=== PATIENT | female | born 1940 | race Caucasian/White ===

== ENCOUNTER 2018-04-02 06:29 | Emergency (ER) | payer OTHER, MEDICARE ==
[2018-04-02] MEDS ORDERED: HYDROCODONE/APAP 5/325 MG TAB ONE (07:37)
--- NOTE | 2018-04-02 09:14 | RAD REPORT ---
EXAM DESCRIPTION: RAD - Chest Single View - 04/02/2018 7:25 am CLINICAL HISTORY: Fall, right-sided chest and rib pain COMPARISON: August 2016 TECHNIQUE: AP portable chest image was obtained 0712 hours . FINDINGS: Scattered fibrotic change present. Low lung volumes accentuate the mild fibrosis. No pulmo nary contusion or focal lung parenchymal process. Heart and vasculature are normal. No measurable ple ural effusion and no pneumothorax. No gross bone abnormality seen. Rib detail is better evaluated on directed imaging. No acute aortic findings suspected. IMPRESSION: Fibrotic pattern to the lungs mild in degree. No pulmonary contusion or pneumothorax. No gross bone abnormality seen. Dedicated rib films may allow better assessment.
--- NOTE | 2018-04-02 09:17 | RAD REPORT ---
EXAM DESCRIPTION: Ribs Right - 04/02/2018 7:25 am CLINICAL HISTORY: Fall, right-sided rib pain COMPARISON: Chest films same date FINDINGS: No displaced rib fractures are present. Patient has nondisplaced fractures of the posterol ateral right seventh-ninth ribs. No pathologic bone process. No aggressive rib lesion. No underlying pneumothorax, effusion, infiltrate or pulmonary contusion. IMPRESSION: Posterolateral nondisplaced right 7-9th rib fractures.
--- NOTE | 2018-04-02 09:37 | EDPHYS ---
Physician Documentation [facility] Name: Carrie Avery Age: 78 yrs Sex: Female : 1940 Arrival Date: 04/02/2018 Time: 06:32 Bed 7 Private MD: Jorge Tracy R ED Physician Francisco Luz HPI: 04/02 06:45 This 78 yrs old Female presents to ER via Wheelchair with complaints of Right pm1 RIB INJURY. 06:45 3 days ago, patient tripped while she was in the garage and landed on her right side pm1 with right elbow tucked against her body. Patient presenting to the ER with pain to right lateral ribs. No headache, head injury, neck pain or LOC. No shortness of breath, cough or fever. . The patient has not experienced similar symptoms in the past. The patient has not recently seen a physician. Historical: - Allergies: 06:43 Sulfa (Sulfonamide Antibiotics); ed1 - Home Meds: 06:43 Unable to obtain [Active]; ed1 - PMHx: 06:43 Unable to obtain; ed1 - PSHx: 06:43 Unable to obtain; ed1 - Immunization history:: Adult Immunizations unknown. - Social history:: Smoking status: Patient/guardian denies using tobacco. - Ebola Screening: : Patient negative for fever greater than or equal to 101.5 degrees Fahrenheit, and additional compatible Ebola Virus Disease symptoms Patient denies exposure to infectious person Patient denies travel to an Ebola-affected area in the 21 days before illness onset No symptoms or risks identified at this time. ROS: 07:00 Constitutional: Negative for fever, chills, and weight loss, Eyes: Negative for injury, pm1 pain, redness, and discharge, ENT: Negative for injury, pain, and discharge, Neck: Negative for injury, pain, and swelling, Cardiovascular: Negative for chest pain, palpitations, and edema, Respiratory: Negative for shortness of breath, cough, wheezing, and pleuritic chest pain, Abdomen/GI: Negative for abdominal pain, nausea, vomiting, diarrhea, and constipation, Back: Negative for injury and pain, : Negative for injury, bleeding, discharge, and swelling, MS/Extremity: Negative for injury and deformity, Skin: Negative for injury, rash, and discoloration, Neuro: Negative for headache, weakness, numbness, tingling, and seizure. Exam: 07:00 Constitutional: This is a well developed, well nourished patient who is awake, alert, pm1 and in no acute distress. Head/Face: Normocephalic, atraumatic. Eyes: Pupils equal round and reactive to light, extra-ocular motions intact. Lids and lashes normal. Conjunctiva and sclera are non-icteric and not injected. Cornea within normal limits. Periorbital areas with no swelling, redness, or edema. ENT: Nares patent. No nasal discharge, no septal abnormalities noted. Tympanic membranes are normal and external auditory canals are clear. Oropharynx with no redness, swelling, or masses, exudates, or evidence of obstruction, uvula midline. Mucous membranes moist. Neck: Trachea midline, no thyromegaly or masses palpated, and no cervical lymphadenopathy. Supple, full range of motion without nuchal rigidity, or vertebral point tenderness. No Meningismus. 07:00 Cardiovascular: Regular rate and rhythm with a normal S1 and S2. No gallops, murmurs, or rubs. Normal PMI, no JVD. No pulse deficits. Respiratory: Lungs have equal breath sounds bilaterally, clear to auscultation and percussion. No rales, rhonchi or wheezes noted. No increased work of breathing, no retractions or nasal flaring. Abdomen/GI: Soft, non-tender, with normal bowel sounds. No distension or tympany. No guarding or rebound. No evidence of tenderness throughout. Back: No spinal tenderness. No costovertebral tenderness. Full range of motion. Skin: Warm, dry with normal turgor. Normal color with no rashes, no lesions, and no evidence of cellulitis. MS/ Extremity: Pulses equal, no cyanosis. Neurovascular intact. Full, normal range of motion. 07:00 Chest/axilla: Inspection: normal, Palpation: tenderness, of the focal area to right lateral anterior chest, that totally reproduces the patient's complaints. 07:00 Neuro: Orientation: is normal, Motor: is normal, moves all fours. Vital Signs: 06:43 BP 146 / 71; Pulse 81; Resp 18; Temp 97.9(O); Pulse Ox 98% on R/A; Pain 6/10; ed1 07:49 BP 150 / 80; Pulse 82; Resp 18; Pulse Ox 99% ; sv 08:21 BP 124 / 75; Pulse 82; Resp 18; Pulse Ox 98% ; sv MDM: 06:38 Patient medically screened. pm1 07:42 Data reviewed: vital signs. Data interpreted: Pulse oximetry: on room air is 98 %. pm1 Interpretation: normal. 09:36 Counseling: I had a detailed discussion with the patient and/or guardian regarding: the pm1 historical points, exam findings, and any diagnostic results supporting the discharge/admit diagnosis, radiology results, the need for outpatient follow up, to return to the emergency department if symptoms worsen or persist or if there are any questions or concerns that arise at home. 04/02 06:44 Order name: Chest Single View XRAY; Complete Time: 09:17 pm1 04/02 06:44 Order name: Ribs Right XRAY; Complete Time: 09:17 pm1 04/02 09:36 Order name: Misc. Order: Incentive spirometer; Complete Time: 09:52 pm1 Administered Medications: 07:32 Drug: [place] 5 mg-325 mg 1 tabs Route: PO; sg 08:30 Follow up: Response: No adverse reaction; Pain is decreased sv Disposition: 04/02/18 09:37 Discharged to Home. Impression: Multiple fractures of ribs, right side. - Condition is Stable. - Discharge Instructions: Rib Fracture, Incentive Spirometer. - Prescriptions for Tylenol- Codeine #3 300-30 mg Oral Tablet - take 2 tablets by ORAL route every 6 hours As needed; 20 tablet. - Medication Reconciliation Form, Thank You Letter, Antibiotic Education, Prescription Opioid Use form. - Follow up: Emergency Department; When: As needed; Reason: Worsening of condition. Follow up: Private Physician; When: 2 - 3 days; Reason: Recheck today's complaints, Continuance of care, Re-evaluation by your physician. - Problem is new. - Symptoms have improved. Signatures: Dispatcher [employer] Dominique Valverde RN HALIE Allen Grimes RN RN Arelis Guillory RN RN ed1 Chase Torrez NP MEDICAL PLANNER pm1 Corrections: (The following items were deleted from the chart) 09:54 09:37 04/02/2018 09:37 Discharged to Home. Impression: Multiple fractures of ribs, sv right side. Condition is Stable. Forms are Medication Reconciliation Form, Thank You Letter, Antibiotic Education, Prescription Opioid Use. Follow up: Emergency Department; When: As needed; Reason: Worsening of condition. Follow up: Private Physician; When: 2 - 3 days; Reason: Recheck today's complaints, Continuance of care, Re-evaluation by your physician. Problem is new. Symptoms have improved. pm1
--- NOTE | 2018-04-02 09:37 | ER ---
Nurse's Notes [facility] Name: Carrie Avery Age: 78 yrs Sex: Female : 1940 Arrival Date: 04/02/2018 Time: 06:32 Bed 7 Private MD: Jorge Tracy R Diagnosis: Multiple fractures of ribs, right side Presentation: 04/02 06:41 Presenting complaint: Patient states: I fell in the garage on and now the ed1 right side of my ribs hurt. Transition of care: patient was not received from another setting of care. Onset of symptoms was March 30, 2018. Risk Assessment: Do you want to hurt yourself or someone else? Patient reports no desire to harm self or others. Initial Sepsis Screen: Does the patient meet any 2 criteria? No. Patient's initial sepsis screen is negative. Does the patient have a suspected source of infection? No. Patient's initial sepsis screen is negative. Care prior to arrival: None. 06:41 Method Of Arrival: Wheelchair ed1 06:41 Acuity: MIMI 3 ed1 Triage Assessment: 06:43 General: Appears uncomfortable, Behavior is calm, cooperative. Pain: Complains of pain ed1 in right elbow Pain currently is 8 out of 10 on a pain scale. Quality of pain is described as sharp, Pain began 2-3 days ago. Is continuous. EENT: No signs and/or symptoms were reported regarding the EENT system. Neuro: Level of Consciousness is awake, alert, obeys commands, Oriented to person, place, time, situation. Cardiovascular: Denies chest pain, Heart tones S1 S2 present. Respiratory: Airway is patent Respiratory effort is even, unlabored, Respiratory pattern is regular, symmetrical, Breath sounds are clear bilaterally. GI: No signs and/or symptoms were reported involving the gastrointestinal system. : No signs and/or symptoms were reported regarding the genitourinary system. Derm: Skin is intact, Skin is pink, warm \T\ dry. Musculoskeletal: Circulation, motion, and sensation intact. Capillary refill < 3 seconds, in bilateral fingers. Range of motion: intact in all extremities, Reports pain in right elbow. Historical: - Allergies: 06:43 Sulfa (Sulfonamide Antibiotics); ed1 - Home Meds: 06:43 Unable to obtain [Active]; ed1 - PMHx: 06:43 Unable to obtain; ed1 - PSHx: 06:43 Unable to obtain; ed1 - Immunization history:: Adult Immunizations unknown. - Social history:: Smoking status: Patient/guardian denies using tobacco. - Ebola Screening: : Patient negative for fever greater than or equal to 101.5 degrees Fahrenheit, and additional compatible Ebola Virus Disease symptoms Patient denies exposure to infectious person Patient denies travel to an Ebola-affected area in the 21 days before illness onset No symptoms or risks identified at this time. Screenin:47 Abuse screen: Denies threats or abuse. Denies injuries from another. Nutritional ed1 screening: No deficits noted. Tuberculosis screening: No symptoms or risk factors identified. Fall Risk Fall in past 12 months (25 points). Secondary diagnosis (15 points) impaired mobility, No IV (0 pts). Ambulatory Aid- None/Bed Rest/Nurse Assist (0 pts). Gait- Normal/Bed Rest/Wheelchair (0 pts) Mental Status- Oriented to own ability (0 pts). Total Diaz Fall Scale indicates Low Risk Score (25-44 pts). Fall prevention measures have been instituted. Side Rails Up X 2 Frequent Obs/Assesments occuring Family Present and informed to notify staff if they need to leave bedside As available Patient and Family Educated on Fall Prevention Program and strategies. Assessment: 06:47 General: See triage assessment. ed1 07:07 Reassessment: Patient appears in no apparent distress at this time. pt requesting pain sg medication prior to transport to [facility]. 07:30 Reassessment: Patient appears in no apparent distress at this time. Patient and/or sg family updated on plan of care and expected duration. Pain level reassessed. Patient is alert, oriented x 3, equal unlabored respirations, skin warm/dry/pink. pt complaining of pain in the right ribs at this time, pt medicated as ordered awaiting radiology results at this time. 08:30 Reassessment: Patient appears in no apparent distress at this time. Patient and/or sv family updated on plan of care and expected duration. Pain level reassessed. Patient is alert, oriented x 3, equal unlabored respirations, skin warm/dry/pink. Patient states symptoms have improved. 09:54 Reassessment: Patient appears in no apparent distress at this time. Patient and/or sv family updated on plan of care and expected duration. Pain level reassessed. Patient is alert, oriented x 3, equal unlabored respirations, skin warm/dry/pink. Patient states symptoms have improved. Vital Signs: 06:43 BP 146 / 71; Pulse 81; Resp 18; Temp 97.9(O); Pulse Ox 98% on R/A; Pain 6/10; ed1 07:49 BP 150 / 80; Pulse 82; Resp 18; Pulse Ox 99% ; sv 08:21 BP 124 / 75; Pulse 82; Resp 18; Pulse Ox 98% ; sv ED Course: 06:32 Patient arrived in ED. es 06:32 Jorge Tracy MD is Private Physician. es 06:34 [facility] pm1 06:34 Francisco Luz MD is Attending Physician. pm1 06:42 Triage completed. ed1 06:43 Arm band placed on. ed1 06:47 Patient has correct armband on for positive identification. Placed in gown. Bed in low ed1 position. Call light in reach. Side rails up X 1. Adult w/ patient. 07:19 Chest Single View XRAY In Process Unspecified. EDMS 07:19 Ribs Right XRAY In Process Unspecified. EDMS 07:31 Allen Grimes, RN is Primary Nurse. sg 09:45 Incentive spirometer education provided by an Emergency Department nursing staff member.sv 09:53 No provider procedures requiring assistance completed. Patient did not have IV access sv during this emergency room visit. Administered Medications: 07:32 Drug: [place] 5 mg-325 mg 1 tabs Route: PO; sg 08:30 Follow up: Response: No adverse reaction; Pain is decreased sv Outcome: 09:37 Discharge ordered by MD. pm1 09:53 Discharged to home via wheelchair, with family. sv 09:53 Condition: stable 09:53 Discharge instructions given to patient, family, Instructed on discharge instructions, follow up and referral plans. no drinking with medication, no driving heavy equipment, medication usage, IS education Demonstrated understanding of instructions, follow-up care, medications, IS education Prescriptions given X 1. 09:54 Patient left the ED. sv Signatures: Dispatcher [employer] Dominique Valverde RN RN sv Gay, Steven, RN RN sg Salyer, Edna es Riggs, Erika, RN RN ed1 Chase Torrez, SALESPERSON FLYING SQUAD SALESPERSON FLYING SQUAD pm1
== END 2018-04-02 09:54 | disposition home or self-care (01) ==
LOC: ER 06:29
DX: S22.41XA Multiple fractures of ribs, right side, initial encounter for closed fracture (principal); W01.0XXA Fall on same level from slipping, tripping and stumbling without subsequent striking against object, initial encounter; Y92.008 Other place in unspecified non-institutional (private) residence as the place of occurrence of the external cause
CPT/HCPCS: 71045; 99283

== ENCOUNTER 2018-10-07 14:50 | Emergency (ER) | payer OTHER, MEDICARE ==
--- NOTE | 2018-10-07 16:40 | RAD REPORT ---
EXAM DESCRIPTION: CT - Thorax Wo Con CLINICAL HISTORY: Chest pain mid back and left rib pain since fall 3 days ago COMPARISON: Ribs Right dated 04/02/2018; Chest Single View dated 04/02/2018 FINDINGS: The lungs are clear. No pleural thickening or pleural effusion. No pneumothorax. No axillary, mediastinal or hilar adenopathy. Mild superior compression deformity is seen affecting T6 vertebral body with slight thickening of the paraspinal tissues. This likely represents a mild acute osteoporotic compression fracture. No additi onal fracture is seen. The visualized/included ribs are intact. No gross upper abdominal finding. All CT scans are performed using dose optimization technique as appropriate and may include automated exposure control or mA/KV adjustment according to patient size. IMPRESSION: Mild acute central compression fracture affecting T6 suspected with about 10-15% loss of vertebral body height.
[2018-10-07] MEDS ORDERED: IBUPROFEN 400 MG TAB ONE (17:06)
[2018-10-07] MEDS ORDERED: ACETAMINOPHEN 500 MG TAB ONE (17:06)
--- NOTE | 2018-10-07 17:21 | EDPHYS ---
Physician Documentation [facility] Name: Carrie Avery Age: 78 yrs Sex: Female : 1940 Arrival Date: 10/07/2018 Time: 14:54 Bed 18 Private MD: Jorge Tracy R ED Physician Mario Fukn HPI: 10/07 15:46 This 78 yrs old Female presents to ER via Wheelchair with complaints of Fall cp Injury, Back Pain. 15:46 Details of fall: The patient fell from a height, step stool, from an upright position, cp while standing. 15:46 Onset: The symptoms/episode began/occurred 3 day(s) ago. cp 15:46 Associated injuries: The patient sustained upper back injury, pain, pain with movement. cp Severity of symptoms: in the emergency department the symptoms are unchanged, despite home interventions. Patient reports she was hanging curtains in bathroom 3 days ago while standing on a step stool when she lost her balance and fell backward into basket. No LOC. Has continued to have pain in mid back area. Historical: - Allergies: 15:16 Sulfa (Sulfonamide Antibiotics); hb 15:16 Codeine; hb - Immunization history:: Adult Immunizations up to date. - Social history:: Smoking status: Patient/guardian denies using tobacco. - Ebola Screening: : No symptoms or risks identified at this time. ROS: 16:00 Constitutional: Negative for body aches, chills, fever, poor PO intake. cp 16:00 Eyes: Negative for injury, pain, redness, and discharge. cp 16:00 ENT: Negative for drainage from ear(s), ear pain, sore throat, difficulty swallowing, difficulty handling secretions. 16:00 Cardiovascular: Negative for chest pain, edema, palpitations. 16:00 Respiratory: Negative for cough, shortness of breath, wheezing. 16:00 Abdomen/GI: Negative for abdominal pain, nausea, vomiting, and diarrhea. 16:00 Back: Positive for pain at rest, pain with movement, of the left scapular area and left subscapular area. 16:00 Skin: Negative for rash. 16:00 Neuro: Negative for altered mental status, headache, weakness. 16:00 All other systems are negative. Exam: 16:05 Constitutional: The patient appears in no acute distress, alert, awake, cp non-diaphoretic, non-toxic, well developed, well nourished. 16:05 Head/Face: Normocephalic, atraumatic. cp 16:05 Eyes: Periorbital structures: appear normal, Conjunctiva: normal, no exudate, no injection, Sclera: no appreciated abnormality, Lids and lashes: appear normal, bilaterally. 16:05 ENT: External ear(s): are unremarkable, Nose: is normal, Mouth: Lips: moist, Oral mucosa: pink and intact, moist, Posterior pharynx: is normal, airway is patent, no erythema, no exudate. 16:05 Neck: C-spine: vertebral tenderness, is not appreciated, crepitus, is not appreciated, ROM/movement: is normal, is supple, without pain, no range of motions limitations, no nuchal rigidity. 16:05 Chest/axilla: Inspection: normal, Palpation: crepitus, is not appreciated, tenderness, that is mild, of the left lateral posterior chest. 16:05 Cardiovascular: Rate: normal, Rhythm: regular, Edema: is not appreciated, JVD: is not appreciated. 16:05 Respiratory: the patient does not display signs of respiratory distress, Respirations: normal, no use of accessory muscles, no retractions, no splinting, no tachypnea, labored breathing, is not present, Breath sounds: are clear throughout, no decreased breath sounds, no stridor, no wheezing. 16:05 Abdomen/GI: Inspection: abdomen appears normal, Bowel sounds: active, all quadrants, Palpation: abdomen is soft and non-tender, in all quadrants. 16:05 Back: pain, that is mild, of the left scapular area, left subscapular area and cp thoracic area, ROM is normal. 16:05 Skin: no rash present. cp 16:05 Neuro: Orientation: to person, place \T\ time. Mentation: is normal, Motor: moves all fours, strength is normal, Sensation: is normal, Gait: is steady. Vital Signs: 15:16 BP 123 / 83; Pulse 92; Resp 16; Temp 97.8; Pulse Ox 100% on R/A; Weight 63.5 kg; Height hb 5 ft. 3 in. (160.02 cm); Pain 10/10; 17:15 BP 157 / 73; Pulse 77; Resp 18; Pulse Ox 99% on R/A; em 15:16 Body Mass Index 24.80 (63.50 kg, 160.02 cm) hb MDM: 15:20 Patient medically screened. cp 17:18 Data reviewed: vital signs, nurses notes, radiologic studies, CT scan, I have discussed cp the patient's presentation/case with the attending Emergency Department Physician; and as a result, I will discharge patient. 17:18 Counseling: I had a detailed discussion with the patient and/or guardian regarding: the cp historical points, exam findings, and any diagnostic results supporting the discharge/admit diagnosis, radiology results, the need for outpatient follow up, a neurosurgeon, to return to the emergency department if symptoms worsen or persist or if there are any questions or concerns that arise at home. 10/07 15:48 Order name: CT Chest Wo Con; Complete Time: 16:43 cp Administered Medications: 17:13 Drug: Ibuprofen 800 mg Route: PO; em 17:32 Follow up: Response: No adverse reaction em 17:13 Drug: Tylenol 1000 mg Route: PO; em 17:32 Follow up: Response: No adverse reaction em Disposition: 10/07/18 17:19 Discharged to Home. Impression: Central compression fracture T6, Other slipping, tripping and stumbling and falls. - Condition is Stable. - Discharge Instructions: Spinal Compression Fracture, Fall Prevention in the Home. - Medication Reconciliation Form, Thank You Letter, Antibiotic Education, Prescription Opioid Use form. - Follow up: Pepe Baumann MD; When: 2 - 3 days; Reason: thoracic compression fracture. - Problem is new. - Symptoms have improved. Signatures: Dispatcher [employer] EDMS Daniel Zuñiga, BRICK CHIMNEY SUPERVISOR BRICK CHIMNEY SUPERVISOR em Luis Alcantara PA PA cp Baxter, Heather, RN RN hb Corrections: (The following items were deleted from the chart) 17:34 17:19 10/07/2018 17:19 Discharged to Home. Impression: Central compression fracture T6; em Other slipping, tripping and stumbling and falls. Condition is Stable. Forms are Medication Reconciliation Form, Thank You Letter, Antibiotic Education, Prescription Opioid Use. Follow up: Pepe Baumann; When: 2 - 3 days; Reason: thoracic compression fracture. Problem is new. Symptoms have improved. cp
--- NOTE | 2018-10-07 17:21 | ER ---
Nurse's Notes [facility] Name: Carrie Avery Age: 78 yrs Sex: Female : 1940 Arrival Date: 10/07/2018 Time: 14:54 Bed 18 Private MD: Jorge Tracy R Diagnosis: Central compression fracture T6;Other slipping, tripping and stumbling and falls Presentation: 10/07 15:14 Presenting complaint: Upper back and left chest wall pain after mechanical fall from standing 3 days ago. Pt reports falling backwards onto laundry basket while hanging curtains. Transition of care: patient was not received from another setting of care. Onset of symptoms was October 04, 2018. Risk Assessment: Do you want to hurt yourself or someone else? Patient reports no desire to harm self or others. Initial Sepsis Screen: Does the patient meet any 2 criteria? No. Patient's initial sepsis screen is negative. Does the patient have a suspected source of infection? No. Patient's initial sepsis screen is negative. Care prior to arrival: None. 15:14 Method Of Arrival: Wheelchair hb 15:14 Acuity: MIMI 4 hb Historical: - Allergies: 15:16 Sulfa (Sulfonamide Antibiotics); hb 15:16 Codeine; hb - Immunization history:: Adult Immunizations up to date. - Social history:: Smoking status: Patient/guardian denies using tobacco. - Ebola Screening: : No symptoms or risks identified at this time. Screenin:36 Abuse screen: Denies threats or abuse. Nutritional screening: No deficits noted. em Tuberculosis screening: No symptoms or risk factors identified. 15:36 Fall Risk None identified. em Assessment: 15:45 General: Appears in no apparent distress. comfortable, Behavior is calm, cooperative. em Pain: Complains of pain in right scapular area and lumbar area Pain currently is 10 out of 10 on a pain scale. Pain began 2-3 days ago. Neuro: Level of Consciousness is awake, alert, obeys commands, Oriented to person, place, time, situation, Moves all extremities. Speech is normal. Cardiovascular: Capillary refill < 3 seconds Patient's skin is warm and dry. Respiratory: Airway is patent Respiratory effort is even, unlabored, Respiratory pattern is regular, symmetrical. Derm: Skin is intact, is healthy with good turgor, Skin is pink, warm \T\ dry. Musculoskeletal: Capillary refill < 3 seconds, Range of motion: intact in all extremities. 17:33 Reassessment: Patient appears in no apparent distress at this time. Patient and/or em family updated on plan of care and expected duration. Pain level reassessed. Patient is alert, oriented x 3, equal unlabored respirations, skin warm/dry/pink. Vital Signs: 15:16 BP 123 / 83; Pulse 92; Resp 16; Temp 97.8; Pulse Ox 100% on R/A; Weight 63.5 kg; Height hb 5 ft. 3 in. (160.02 cm); Pain 10/10; 17:15 BP 157 / 73; Pulse 77; Resp 18; Pulse Ox 99% on R/A; em 15:16 Body Mass Index 24.80 (63.50 kg, 160.02 cm) hb ED Course: 14:54 Patient arrived in ED. dp 14:55 Jorge Tracy MD is Private Physician. dp 15:16 Triage completed. hb 15:16 Arm band placed on. hb 15:18 Luis Alcantara PA is PHCP. cp 15:18 Mario Funk MD is Attending Physician. cp 15:20 Daniel Zuñiga LVN is Primary Nurse. em 15:46 Patient moved back from CT. mw3 16:05 Patient has correct armband on for positive identification. Bed in low position. Call em light in reach. Adult w/ patient. 16:28 CT Chest Wo Con In Process Unspecified. EDMS 16:28 CT completed. Patient tolerated procedure well. Patient moved back from CT. bq 17:17 Pepe Baumann MD is Referral Physician. cp 17:33 No provider procedures requiring assistance completed. Patient did not have IV access em during this emergency room visit. Administered Medications: 17:13 Drug: Ibuprofen 800 mg Route: PO; em 17:32 Follow up: Response: No adverse reaction em 17:13 Drug: Tylenol 1000 mg Route: PO; em 17:32 Follow up: Response: No adverse reaction em Outcome: 17:19 Discharge ordered by . cp 17:33 Discharged to home via wheelchair. em 17:33 Condition: stable 17:33 Discharge instructions given to patient, family, Instructed on discharge instructions, follow up and referral plans. Demonstrated understanding of instructions, follow-up care. 17:34 Patient left the ED. em Signatures: Dispatcher [employer] EDMaritza Olivier Edgar, DIVISION OPERATIONS SPECIALIST DIVISION OPERATIONS SPECIALIST em Luis Alcantara PA PA cp Baxter, Heather, HALIE RN Ana Paula Fontenot mw3 Eligio Orlando
== END 2018-10-07 17:34 | disposition home or self-care (01) ==
LOC: ER 14:50
DX: S22.059A Unspecified fracture of T5-T6 vertebra, initial encounter for closed fracture (principal); W01.0XXA Fall on same level from slipping, tripping and stumbling without subsequent striking against object, initial encounter; Y93.89 Activity, other specified; Y92.9 Unspecified place or not applicable; Z88.2 Allergy status to sulfonamides; Z88.6 Allergy status to analgesic agent
CPT/HCPCS: 71250; 99284

== ENCOUNTER 2020-01-08 11:42 | Emergency (ER) | payer OTHER, MEDICARE ==
--- NOTE | 2020-01-08 12:36 | RAD REPORT ---
EXAM DESCRIPTION: CT - [id number] - 01/08/2020 12:26 pm CLINICAL HISTORY: Trauma, head and neck injury. PAIN COMPARISON: No comparisons TECHNIQUE: Axial 5 mm thick images of the head were obtained. Axial 2 mm thick images of the cervical spine were obtained with sagittal and coronal reconstruction images generated and reviewed. All CT scans are performed using dose optimization technique as appropriate and may include automated exposure control or mA/KV adjustment according to patient size. FINDINGS: CT HEAD WITHOUT CONTRAST: No acute hemorrhage, hydrocephalus or extra-axial collection is identified.Mild generalized brain atr ophy is present with mild periventricular and deep white matter chronic microvascular ischemic change s.No areas of brain edema or midline shift. The paranasal sinuses and mastoids are clear.The calvarium is intact. CT CERVICAL SPINE WITHOUT CONTRAST: No fracture or subluxation.Prominent posterior osteophyte noted at C5-6.No prevertebral soft tissues swelling is identified. IMPRESSION: No acute intracranial or cervical spine findings.
[2020-01-08 12:48] LABS: Absolute Lymphocytes (CBC) 1.5 K/uL (0.7-4.9); Basophils % 0.3 % (0-1.3); Hematocrit 39.8 % (36.0-45.0); Lymphocytes % 17.3 % (15.3-44.8); MPV 7.9 fL (7.6-11.3); RBC Red Blood Cell Count 4.99 M/uL (3.86-4.86)
[2020-01-08 12:54] LABS: Protime INR 0.99
[2020-01-08 13:06] LABS: Potassium 4.1 mmol/L (3.5-5.1)
--- NOTE | 2020-01-08 13:38 | RAD REPORT ---
EXAM DESCRIPTION: RAD - Tib Fib Right - 01/08/2020 1:19 pm CLINICAL HISTORY: PAIN COMPARISON: No comparisons FINDINGS: Nondisplaced fracture the proximal shaft of the fibula is seen. No dislocation seen.
[2020-01-08 13:41] LABS: Urine Blood TRACE (NEG); Urine Glucose NEGATIVE (NEG); Urine Protein 2+ (NEG); Urine Specific Gravity 1.025 (1.005-1.030); Urine pH 7.5 (5.0-7.0)
[2020-01-08 14:14] LABS: Urine Bacteria NONE SEEN /HPF (<20); Urine Culture Reflex Order NOT NEEDED; Urine RBC NONE SEEN /HPF (NONE SEEN)
--- NOTE | 2020-01-08 14:24 | ER ---
Nurse's Notes [facility] Name: Carrie Avery Age: 79 yrs Sex: Female : 1940 Arrival Date: 01/08/2020 Time: 11:45 Bed 20 Private MD: Garrick Chaidez V Diagnosis: Fall on same level from slipping, tripping and stumbling;Nondisplaced fracture of the proximal shaft of the right fibula Presentation: 01/07 11:51 Chief complaint: Patient's son or daughter states: "She fell last night. She said she ss hit her head, but it wasn't bad. This morning I went to check on her and she had fallen again and she had hit the back of her head on the tile floor. We thought the right leg was broke, but now she just can't move it. She is seeing things that aren't there and shadows" Denies LOC. Pt c/o pain all over. Care prior to arrival: None. Mechanism of Injury: Fall from standing position. Trauma event details: Injury occurred in the [facility], Injury occurred: at home. Injury occurred: January 08, 2020 Injury occurred at: 10:50. 11:51 Acuity: MIMI 3 ss 11:51 Method Of Arrival: Wheelchair ss 11:57 Coronavirus screen: Client denies travel out of the [place] in the last 14 days. Ebola ss Screen: Patient denies exposure to infectious person. Patient denies travel to an Ebola-affected area in the 21 days before illness onset. Initial Sepsis Screen: Does the patient meet any 2 criteria? No. Patient's initial sepsis screen is negative. Does the patient have a suspected source of infection? No. Patient's initial sepsis screen is negative. Risk Assessment: Do you want to hurt yourself or someone else? Patient reports no desire to harm self or others. Onset of symptoms was January 08, 2020. Trauma Activation: Not Applicable Physician: ED Physician; Name: ; Notified At: ; Arrived At: Physician: General Surgeon; Name: ; Notified At: ; Arrived At: Physician: Radiology; Name: ; Notified At: ; Arrived At: Physician: Respiratory; Name: ; Notified At: ; Arrived At: Physician: Lab; Name: ; Notified At: ; Arrived At: Historical: - Allergies: 11:58 Codeine; ss 11:58 Sulfa (Sulfonamide Antibiotics); ss - Home Meds: 12:12 levothyroxine oral [Active]; sertraline oral oral [Active]; Lorazepam Oral [Active]; ss - PMHx: 12:12 Hypothyroidism; Anxiety; Depression; Osteoporosis; ss - Immunization history:: Adult Immunizations up to date. - Social history:: Smoking status: Patient denies any tobacco usage or history of. - Immunization history: Last tetanus immunization: unknown. Screenin:51 Abuse screen: Denies threats or abuse. Denies injuries from another. Tuberculosis ss screening: Never had TB. 12:41 Nutritional screening: No deficits noted. Patient has been NPO before screening. The tw2 patient is alert, able to follow commands. The patient does not exhibit slurred or garbled speech The patient is not exhibiting difficulty speaking. The patient does not exhibit difficulty understanding words. The patient is able to swallow own secretions with no drooling or need for suction. Patient tolerated one teaspoon of water. No drooling, immediate coughing, gurgling, or clearing of the throat was noted. The patient tolerated 90mL of water. No drooling, immediate coughing, gurgling, or clearing of the throat was noted. The patient passed the bedside swallow screening. Oral medications may be given as ordered. Contact Physician for further diet orders. Provider notified of bedside swallow screening results: Marva Escalante SOCIAL SERVICES COORDINATOR-C. Fall Risk Secondary diagnosis (15 points) impaired mobility. Primary Survey: 12:00 NO uncontrolled hemorrhage observed. A: The patient is alert. Airway: patent. tw2 Breathing/Chest: Respiratory pattern: regular, Respiratory effort: spontaneous, unlabored, Breath sounds: clear, bilaterally. Chest inspection: symmetrical rise and fall of the chest. Circulation: Heart tones present. Skin temperature: warm, dry. Disability Alert. Exposure/Environment: All clothing and personal items were removed. Forensic evidence collection is not deemed to be indicated at this time. Items placed in patient belonging bag. There is no evidence of uncontrolled external bleeding. A warming method has been applied: A warm blanket has been provided to the patient. 13:02 Reassessment Airway Airway Patent Breathing/Chest Respiratory pattern Regular tw2 Respiratory effort Spontaneous Unlabored Breath sounds Clear Circulation Heart tones Present Disability Alert. Assessment: 12:00 General: Appears in no apparent distress. slender, well groomed, Behavior is calm, tw2 cooperative, appropriate for age. Pain: Complains of pain in right leg. Neuro: Level of Consciousness is awake, alert, obeys commands, Oriented to person, place, time, situation. Cardiovascular: Heart tones S1 S2 Patient's skin is warm and dry. Respiratory: Airway is patent Respiratory effort is even, unlabored, Respiratory pattern is regular, symmetrical, Breath sounds are clear bilaterally. GI: No signs and/or symptoms were reported involving the gastrointestinal system. Abdomen is flat, Bowel sounds present X 4 quads. : No signs and/or symptoms were reported regarding the genitourinary system. EENT: No signs and/or symptoms were reported regarding the EENT system. Derm: No signs and/or symptoms reported regarding the dermatologic system. Musculoskeletal: Circulation, motion, and sensation intact. Range of motion: intact in all extremities, Parent/caregiver report the patient having pain in right leg. 13:01 Reassessment: Patient appears in no apparent distress at this time. No changes from tw2 previously documented assessment. Patient and/or family updated on plan of care and expected duration. Pain level reassessed. Patient is alert, oriented x 3, equal unlabored respirations, skin warm/dry/pink. 13:59 Reassessment: Dr. Cabezas at bedside at this time. tw2 13:59 Reassessment: Patient appears in no apparent distress at this time. No changes from tw2 previously documented assessment. Patient and/or family updated on plan of care and expected duration. Pain level reassessed. Patient is alert, oriented x 3, equal unlabored respirations, skin warm/dry/pink. 14:33 Reassessment: Patient appears in no apparent distress at this time. No changes from tw2 previously documented assessment. Patient and/or family updated on plan of care and expected duration. Pain level reassessed. Patient is alert, oriented x 3, equal unlabored respirations, skin warm/dry/pink. Vital Signs: 11:51 BP 172 / 79; Pulse 94; Resp 16; Temp 97.6(TE); Pulse Ox 99% on R/A; Weight 61.23 kg; ss Height 5 ft. 4 in. (162.56 cm); Pain 8/10; 13:01 BP 178 / 93; Pulse 86; Resp 18; Pulse Ox 98% on R/A; tw2 13:59 BP 180 / 90; Pulse 96; Resp 20; Pulse Ox 100% on R/A; tw2 14:34 BP 170 / 82; Pulse 84; Resp 19; Pulse Ox 99% on R/A; tw2 11:51 Body Mass Index 23.17 (61.23 kg, 162.56 cm) ss Sheba Coma Score: 11:51 Eye Response: spontaneous(4). Verbal Response: oriented(5). Motor Response: obeys ss commands(6). Total: 15. Trauma Score (Adult): 11:51 Eye Response: spontaneous(1); Verbal Response: oriented(1); Motor Response: obeys ss commands(2); Systolic BP: > 89 mm Hg(4); Respiratory Rate: 10 to 29 per min(4); Tyler Score: 15; Trauma Score: 12 NIH Stroke Scale Scores: 12:30 NIHSS Score: 0 kb ED Course: 11:45 Patient arrived in ED. mr 11:45 Garrick Chaidez MD is Private Physician. mr 11:51 Patient has correct armband on for positive identification. ss 11:51 Patient maintains SpO2 saturation greater than 95% on room air. ss 11:55 Triage completed. ss 11:58 Arm band placed on right wrist. ss 12:01 Cortney Gottlieb, HAILE is Primary Nurse. tw2 12:06 Marva Escalante FNP-C [facility]. kb 12:06 Mikey Cabezas MD is Attending Physician. kb 12:24 CT Head C Spine In Process Unspecified. EDMS 12:26 CT completed. Patient tolerated procedure well. Patient moved to CT via stretcher. sj Patient moved back from CT. 12:36 Initial lab(s) drawn, by ny, sent to lab. Inserted saline lock: 20 gauge in right tw2 forearm, using aseptic technique. Blood collected. 12:44 Thermoregulation: warm blanket given to patient. tw2 12:49 Patient has correct armband on for positive identification. Bed in low position. Call [facility] light in reach. Side rails up X 1. Adult w/ patient. Warm blanket given. monitoring coordinator on. Pulse ox on. NIBP on. 12:50 EKG done, by ED staff, reviewed by Mikey Cabezas MD. [facility] 13:01 Straight cath inserted, using sterile technique, 16 Fr. Specimen obtained. Karolina, tw2 Tech served as bookkeeper receptionist Returned clear yellow urine. Patient tolerated well. 13:19 Tib Fib Right XRAY In Process Unspecified. EDMS 14:34 No provider procedures requiring assistance completed. IV discontinued, intact, tw2 bleeding controlled, No redness/swelling at site. Pressure dressing applied. Administered Medications: No medications were administered Output: 13:02 Urine: 300ml (Straight Cath); Total: 300ml. tw2 Outcome: 14:23 Discharge ordered by MD. tavarez 14:34 Discharged to home via wheelchair, with family, with significant other. tw2 14:34 Condition: stable 14:34 Discharge instructions given to patient, family, significant other, Instructed on discharge instructions, follow up and referral plans. safety practices, CMS checks with christin wrap Demonstrated understanding of instructions, follow-up care, CMS checks 14:35 Patient's length of stay in the Emergency Department was greater than 2 hours. d/t tw2 resultsPatient's length of stay extended due to 14:35 Patient left the ED. tw2 NIH Stroke Scale - NIH Stroke Score Date: 01/08/2020 Time: 12:30 Total Score = 0 1a. Level of Consciousness (LOC) - 0(Alert) 1b. Level of Consciousness (LOC) (Year \\T\\ Age) - 0(Both) 1c. LOC Commands (Open \\T\\ Closes Eyes/Electrical Engineering Director) - 0(Both) 2. Best Gaze (Lateral Gaze Paresis) - 0(Normal) 3. Visual Field Loss - 0(No visual loss) 4. Facial Palsy - 0(Normal) 5a. Left Arm: Motor (10-second hold) - 0(No drift) 5b. Right Arm: Motor (10-second hold) - 0(No drift) 6a. Left Leg: Motor (5-second hold - always test supine) - 0(No drift) 6b. Right Leg: Motor (5-second hold - always test supine) - 0(No drift) 7. Limb Ataxia (finger/nose \\T\\ heel/cagle - test with eyes open) - 0(Absent) 8. Sensory Loss (pinprick arms/legs/face) - 0(Normal) 9. Best Language: Aphasia (description/naming/reading) - 0(No aphasia) 10. Dysarthria (speech clarity - read or repeat words) - 0(Normal) 11. Extinction and Inattention (visual/tactile/auditory/spatial/personal) - 0(No abnormality) Initials: kb Signatures: Dispatcher [employer] EDMarva Haines, SOCIAL SERVICES COORDINATOR-C SOCIAL SERVICES COORDINATOR-Ckb Dory Perez, Radha Deluca RN RN ss Wise, Tara, RN RN [facility] Lucy Mancini [facility] Corrections: (The following items were deleted from the chart) 12:09 11:51 Chief complaint: Patient's son or daughter states: "She fell last night. ss She said she hit her head, but it wasn't bad. This morning I went to check on her and she had fallen again and she had hit the back of her head on the tile floor. We thought the right leg was broke, but now she just can't move it. She is seeing things that aren't there and shadows" Denies LOC ss
--- NOTE | 2020-01-08 14:24 | EDPHYS ---
Physician Documentation [facility] Name: Carrie Avery Age: 79 yrs Sex: Female : 1940 Arrival Date: 01/08/2020 Time: 11:45 Bed 20 Private MD: Garrick Chaidez V ED Physician Mikey Cabezas HPI: 01/07 12:30 This 79 yrs old Female presents to ER via Wheelchair with complaints of Fall kb Injury, Confusion. 12:30 Details of fall: The patient fell from an upright position, cleaning toilet. Onset: The kb symptoms/episode began/occurred this morning. Associated injuries: The patient sustained injury to the head, pain, right leg, painful injury. Severity of symptoms: At their worst the symptoms were mild, in the emergency department the symptoms are unchanged. The patient has not experienced similar symptoms in the past. The patient has not recently seen a physician. Pt reports she was cleaning the toilet and fell this morning. Reports she couldn't walk afterwards so she crawled to the kitchen. Son reports he went to check on her and found her in the kitchen. States he hit her head when she fell and he was concerned that she injured the right leg. States pt was seeing shadows in the closet and heard the water running in the bathroom when it wasn't so he was concerned that she had had a stroke. Historical: - Allergies: 11:58 Codeine; ss 11:58 Sulfa (Sulfonamide Antibiotics); ss - Home Meds: 12:12 levothyroxine oral [Active]; sertraline oral oral [Active]; Lorazepam Oral [Active]; ss - PMHx: 12:12 Hypothyroidism; Anxiety; Depression; Osteoporosis; ss - Immunization history:: Adult Immunizations up to date. - Social history:: Smoking status: Patient denies any tobacco usage or history of. - Immunization history: Last tetanus immunization: unknown. ROS: 12:26 Constitutional: Negative for fever, chills, and weight loss, Cardiovascular: Negative kb for chest pain, palpitations, and edema, Respiratory: Negative for shortness of breath, cough, wheezing, and pleuritic chest pain, Abdomen/GI: Negative for abdominal pain, nausea, vomiting, diarrhea, and constipation, Back: Negative for injury and pain, Skin: Negative for injury, rash, and discoloration. 12:26 MS/extremity: Positive for pain, of the right cagle. 12:26 Neuro: Positive for altered mental status, Negative for dizziness, gait disturbance, headache, hearing loss, loss of consciousness, numbness, seizure activity, speech changes, syncope, near syncope, tingling, tinnitus, tremor, visual changes, weakness. Exam: 12:29 Constitutional: This is a well developed, well nourished patient who is awake, alert, kb and in no acute distress. Head/Face: Normocephalic, atraumatic. Chest/axilla: Normal chest wall appearance and motion. Nontender with no deformity. No lesions are appreciated. Cardiovascular: Regular rate and rhythm with a normal S1 and S2. No gallops, murmurs, or rubs. Normal PMI, no JVD. No pulse deficits. Respiratory: Lungs have equal breath sounds bilaterally, clear to auscultation and percussion. No rales, rhonchi or wheezes noted. No increased work of breathing, no retractions or nasal flaring. Abdomen/GI: Soft, non-tender, with normal bowel sounds. No distension or tympany. No guarding or rebound. No evidence of tenderness throughout. Skin: Warm, dry with normal turgor. Normal color with no rashes, no lesions, and no evidence of cellulitis. Neuro: Awake and alert, GCS 15, oriented to person, place, time, and situation. Cranial nerves II-XII grossly intact. Motor strength 5/5 in all extremities. Sensory grossly intact. Cerebellar exam normal. Normal gait. 12:29 Musculoskeletal/extremity: Extremities: grossly normal except: noted in the right upper arm and right cagle: soreness with ROM, ROM: intact in all extremities, Circulation is intact in all extremities. Sensation intact. 12:47 ECG was reviewed by the Attending Physician. Vital Signs: 11:51 BP 172 / 79; Pulse 94; Resp 16; Temp 97.6(TE); Pulse Ox 99% on R/A; Weight 61.23 kg; ss Height 5 ft. 4 in. (162.56 cm); Pain 8/10; 13:01 BP 178 / 93; Pulse 86; Resp 18; Pulse Ox 98% on R/A; tw2 13:59 BP 180 / 90; Pulse 96; Resp 20; Pulse Ox 100% on R/A; tw2 14:34 BP 170 / 82; Pulse 84; Resp 19; Pulse Ox 99% on R/A; tw2 11:51 Body Mass Index 23.17 (61.23 kg, 162.56 cm) ss NIH Stroke Scale Scores: 12:30 NIHSS Score: 0 kb Sheba Coma Score: 11:51 Eye Response: spontaneous(4). Verbal Response: oriented(5). Motor Response: obeys ss commands(6). Total: 15. Trauma Score (Adult): 11:51 Eye Response: spontaneous(1); Verbal Response: oriented(1); Motor Response: obeys ss commands(2); Systolic BP: > 89 mm Hg(4); Respiratory Rate: 10 to 29 per min(4); Sheba Score: 15; Trauma Score: 12 MDM: 12:06 Patient medically screened. kb 12:29 Data reviewed: vital signs, nurses notes. Data interpreted: Pulse oximetry: on room air kb is 99 %. Interpretation: normal. 14:07 ED course: Dr Cabezas at bedside for re-evaluation. kb 14:21 Counseling: I had a detailed discussion with the patient and/or guardian regarding: the kb historical points, exam findings, and any diagnostic results supporting the discharge/admit diagnosis, lab results, radiology results, the need for outpatient follow up, a family practitioner, to return to the emergency department if symptoms worsen or persist or if there are any questions or concerns that arise at home. 01/07 12:20 Order name: Basic Metabolic Panel; Complete Time: 13:08 kb 01/07 12:20 Order name: CBC with Diff; Complete Time: 12:53 kb 01/07 12:20 Order name: Protime (+inr); Complete Time: 13:08 kb 01/07 12:20 Order name: Ptt, Activated; Complete Time: 13:08 kb 01/07 13:30 Order name: Urine Dipstick--Ancillary (enter results); Complete Time: 13:42 bd 01/07 13:41 Order name: Urine Microscopic Only; Complete Time: 14:21 kb 01/07 12:06 Order name: CT Head C Spine; Complete Time: 12:37 kb 01/07 12:20 Order name: EKG; Complete Time: 12:21 kb 01/07 12:20 Order name: Cardiac monitoring; Complete Time: 12:45 kb 01/07 12:20 Order name: EKG - Nurse/Tech; Complete Time: 12:45 kb 01/07 12:20 Order name: IV Saline Lock; Complete Time: 12:45 kb 01/07 12:20 Order name: Labs collected and sent; Complete Time: 12:45 kb 01/07 12:20 Order name: NPO; Complete Time: 12:45 kb 01/07 12:28 Order name: Tib Fib Right XRAY; Complete Time: 13:41 kb 01/07 12:20 Order name: O2 Per Protocol; Complete Time: 12:45 kb 01/07 12:20 Order name: O2 Sat Monitoring; Complete Time: 12:45 kb 01/07 12:20 Order name: Stroke Swallow Screen; Complete Time: 12:45 kb 01/07 12:48 Order name: Urine Dipstick-Ancillary (obtain specimen); Complete Time: 13:03 kb 01/07 13:02 Order name: Straight Cath - Urine; Complete Time: 13:03 tw2 01/07 14:21 Order name: Goran Wrap; Complete Time: 14:33 kb EC:47 Rate is 90 beats/min. Rhythm is regular. QRS [place] is Normal. CA interval is normal at kb 148 msec. QRS interval is normal at 136 msec. QT interval is normal at 444 msec. Administered Medications: No medications were administered Disposition: 01/08 08:33 Co-signature as Attending Physician, Mikey Cabezas MD I agree with the assessment and kdr plan of care. Disposition: 01/08/20 14:23 Discharged to Home. Impression: Fall on same level from slipping, tripping and stumbling, Nondisplaced fracture of the proximal shaft of the right fibula. - Condition is Stable. - Discharge Instructions: Fall Prevention in the Home, [id number]. - Medication Reconciliation Form, Thank You Letter, Antibiotic Education, Prescription Opioid Use form. - Follow up: Private Physician; When: 2 - 3 days; Reason: Recheck today's complaints, Continuance of care, Re-evaluation by your physician. Follow up: Emergency Department; When: As needed; Reason: Worsening of condition. NIH Stroke Scale - NIH Stroke Score Date: 01/08/2020 Time: 12:30 Total Score = 0 1a. Level of Consciousness (LOC) - 0(Alert) 1b. Level of Consciousness (LOC) (Year \T\ Age) - 0(Both) 1c. LOC Commands (Open \T\ Closes Eyes/Director Of Conservation) - 0(Both) 2. Best Gaze (Lateral Gaze Paresis) - 0(Normal) 3. Visual Field Loss - 0(No visual loss) 4. Facial Palsy - 0(Normal) 5a. Left Arm: Motor (10-second hold) - 0(No drift) 5b. Right Arm: Motor (10-second hold) - 0(No drift) 6a. Left Leg: Motor (5-second hold - always test supine) - 0(No drift) 6b. Right Leg: Motor (5-second hold - always test supine) - 0(No drift) 7. Limb Ataxia (finger/nose \T\ heel/cagle - test with eyes open) - 0(Absent) 8. Sensory Loss (pinprick arms/legs/face) - 0(Normal) 9. Best Language: Aphasia (description/naming/reading) - 0(No aphasia) 10. Dysarthria (speech clarity - read or repeat words) - 0(Normal) 11. Extinction and Inattention (visual/tactile/auditory/spatial/personal) - 0(No abnormality) Initials: kb Signatures: Dispatcher [employer] EDMS Marva Escalante, RUBY ON RAILS ENGINEER-C RUBY ON RAILS ENGINEER-Ckb Mikey Cabezas MD MD [facility] Radha Rose RN RN ss Cortney Gottlieb RN RN tw2 Corrections: (The following items were deleted from the chart) 01/07 14:35 14:23 01/08/2020 14:23 Discharged to Home. Impression: Fall on same level from tw2 slipping, tripping and stumbling; Nondisplaced fracture of the proximal shaft of the right fibula. Condition is Stable. Forms are Medication Reconciliation Form, Thank You Letter, Antibiotic Education, Prescription Opioid Use. Follow up: Private Physician; When: 2 - 3 days; Reason: Recheck today's complaints, Continuance of care, Re-evaluation by your physician. Follow up: Emergency Department; When: As needed; Reason: Worsening of condition. kb
[2020-01-08 21:17] VITALS: TEMP 97.6
[2020-01-08 21:25] VITALS: BP 170/82; O2SAT 99
--- NOTE | 2020-01-09 07:18 | EKG ---
Test Date: 2020-01-08 Test Time: 12:43:03 Conservation Assistant: CAMERON MEASUREMENT RESULTS: Intervals: Rate: 90 KS: 148 QRSD: 136 QT: 444 QTc: 543 [place]: P: 59 KS: 148 QRS: -28 T: 106 INTERPRETIVE STATEMENTS: Normal sinus rhythm Left ventricular hypertrophy with QRS widening and repolarization abnormality Abnormal ECG Compared to ECG 11/02/2009 06:43:07 Left ventricular hypertrophy now present Early repolarization now present Electronically Signed On 01-09-20 07:17:33 PHYSICAL THERAPY MANAGER by Manpreet Bell
== END 2020-01-08 14:35 | disposition home or self-care (01) ==
LOC: ER 11:42
DX: S82.491A Other fracture of shaft of right fibula, initial encounter for closed fracture (principal); W01.0XXA Fall on same level from slipping, tripping and stumbling without subsequent striking against object, initial encounter; Y93.E9 Activity, other interior property and clothing maintenance; Y92.002 Bathroom of unspecified non-institutional (private) residence as the place of occurrence of the external cause; Z88.2 Allergy status to sulfonamides; Z88.5 Allergy status to narcotic agent; E03.9 Hypothyroidism, unspecified; F41.8 Other specified anxiety disorders
CPT/HCPCS: 36415; 51702; 70450; 72125; 80048; 81003; 81015; 85025; 85610; 85730; 93005; 99285

== ENCOUNTER 2021-06-29 09:29 | Emergency (ER) | payer OTHER, MEDICARE ==
--- OUTSIDE RECORDS SUMMARY | 2021-06-29 09:31 | XMS REPORT | Continuity of Care Document ---
:1940 Author Organization [facility] t Address [address] [place] [id number] Care Team Providers Name Role Phone Unavailable Unavailable Unavailable Problems This patient has no known problems. Allergies, Adverse Reactions, Alerts This patient has no known allergies or adverse reactions. Medications This patient has no known medications. Procedures This patient has no known procedures. Encounters Start End Encounter Admission Attending Care Care Encounter Source Date/Time Date/Time Type Type Clinicians Facility Department ID 2020-11-30 Inpatient ER [facility] Cardiology [id number] NPI:[id number] 07:07:01 [id number] 2020-11-30 Inpatient ER [facility] Cardiology [id number] NPI:[id number] 07:06:50 [id number] Results This patient has no known results.
[2021-06-29 09:52] LABS: Protime INR 1.16
[2021-06-29 09:53] LABS: Absolute Lymphocytes (CBC) 0.7 K/uL (0.7-4.9); Hematocrit 32.9 % (36.0-45.0); Lymphocytes % 5.4 % (15.3-44.8); MPV 7.4 fL (7.6-11.3); RBC Red Blood Cell Count 4.08 M/uL (3.86-4.86)
[2021-06-29] MEDS ORDERED: NA CHLORIDE 0.9% 1,000 ML ONE (09:56)
[2021-06-29] MEDS ORDERED: NA CHLORIDE 0.9% 500 ML ONE (09:57)
[2021-06-29 10:11] LABS: Albumin 3.6 g/dL (3.4-5.0); Bilirubin Direct 0.1 mg/dL (0-0.2); Bilirubin Total 0.5 mg/dL (0.2-1.0); CKMB Creatine Kinase MB 4.1 ng/mL (1.0-3.6); Magnesium 2.1 mg/dL (1.8-2.4); Protein, Total 7.4 g/dL (6.4-8.2); Troponin High Sensitivity 25.2 pg/mL (<58.9)
--- NOTE | 2021-06-29 10:22 | RAD REPORT ---
EXAM DESCRIPTION: CT - Head C Spine Cap Wo Con - 06/29/2021 10:04 am CLINICAL HISTORY: Trauma, head and neck injury. Chest, abdomen and pelvis pain. fall COMPARISON: Abdomen Pelvis W Contrast dated 10/12/2019 TECHNIQUE: CT head without contrast. CT cervical spine without contrast with coronal and sagittal reformatted images. CT chest, abdomen and pelvis with coronal and sagittal reformatted images of the spine. All CT scans are performed using dose optimization technique as appropriate and may include automated exposure control or mA/KV adjustment according to patient size. FINDINGS: CT HEAD WITHOUT CONTRAST: No intracranial hemorrhage, hydrocephalus or extra-axial fluid collection. No acute large vascular te rritory infarct. Chronic small vessel ischemic changes. The paranasal sinuses and mastoids are clear. The calvarium is intact. CT CERVICAL SPINE WITHOUT CONTRAST: No fracture or subluxation. The prevertebral soft tissues are normal in thickness.Multilevel cervical spondylosis with evidence o f neural foraminal narrowing bilaterally. Mild central spinal stenosis may be present at the C5-6 lev el secondary to a posterior disc osteophyte complex. CT CHEST, ABDOMEN, PELVIS: Thorax: Chest Wall: No abnormal mass Lungs: No acute abnormality. Pleura: No effusions or pneumothorax. [place]/Mediastinum: No lymphadenopathy. Small hiatal hernia. Aorta/Pulmonary Arteries: Unremarkable Heart: Normal size. Abdomen/Pelvis: Liver: No acute abnormality or suspicious lesions. Biliary: No biliary ductal dilatation. Stomach: No significant focal abnormality. Duodenum: No significant focal abnormality. Pancreas: No significant abnormality. Spleen: No significant abnormality. Adrenal: No suspicious lesions. Kidney/ureter: No hydronephrosis. No renal calculi. Retroperitoneum: No retroperitoneal adenopathy. Vascular: No aneurysm. Bowel: No significant focal abnormality. Peritoneum: No ascites or free air. Bladder: Grossly unremarkable. Reproductive: No adnexal masses. Bones: Possible nondisplaced right anterior fifth through eighth rib fractures. There is slight angul ation. L1 compression fracture with up to a study percent loss of height. Mild bony retropulsion.T6 c ompression fracture with approximately 20% loss of height anteriorly. No bony retropulsion. Remote L3 compression fracture. Remote appearing sternal fracture. Right femoral neck fracture which is displa wil and angulated anteriorly. No dislocation. . Other: n/a IMPRESSION: 1. Acute or subacute L1 compression fracture with minimal bony retropulsion. Age indeter minate T6 compression fracture. No bony retropulsion. 2. Right subcapital femoral neck fracture. No dislocation. 3. Possible right fifth through eighth anterior nondisplaced rib fractures. No pneumothorax.
[2021-06-29] MEDS ORDERED: FENTANYL CITR 100 MCG/2 ML ONE ×3 (10:36→13:47)
[2021-06-29] MEDS ORDERED: ONDANSETRON 4 MG/2 ML VIAL ONE (10:37)
--- NOTE | 2021-06-29 11:15 | ER ---
Nurse's Notes [facility] Name: Carrie Avery Age: 81 yrs Sex: Female : 1940 Arrival Date: 06/29/2021 Time: Bed 24 Private MD: Diagnosis: Fall on same level, unspecified;Nondisplaced fracture of base of neck of right femur, initial encounter for closed fracture;Multiple fractures of ribs, right side;Other fracture of first lumbar vertebra, initial encounter for closed fracture-compression, with retropulsion;Weakness;Hypo-osmolality and hyponatremia Presentation: 06/29 08: Chief complaint: EMS states: fell last night attempting to reach to turn on the ceiling aa5 fan. Pt c/o right hip pain and right leg pain. Denies LOC. Pt takes Xarelto. Care prior to arrival: None. Mechanism of Injury: Fall from standing position. Trauma event details: Injury occurred in the [facility], Injury occurred: at home. Acuity: MIMI 3 aa5 Method Of Arrival: EMS: [facility] aa5 Coronavirus screen: At this time, the client does not indicate any symptoms associated aa5 with coronavirus-19. Ebola Screen: Patient denies travel to an Ebola-affected area in the 21 days before illness onset. Initial Sepsis Screen: Does the patient meet any 2 criteria? No. Patient's initial sepsis screen is negative. Does the patient have a suspected source of infection? No. Patient's initial sepsis screen is negative. Risk Assessment: Do you want to hurt yourself or someone else? Patient reports no desire to harm self or others. Onset of symptoms was June 2021. aa5 Trauma Activation: Not Applicable Physician: ED Physician; Name: ; Notified At: ; Arrived At: Physician: General Surgeon; Name: ; Notified At: ; Arrived At: Physician: Radiology; Name: ; Notified At: ; Arrived At: Physician: Respiratory; Name: ; Notified At: ; Arrived At: Physician: Lab; Name: ; Notified At: ; Arrived At: Historical: - Allergies: : Codeine; aa5 : Sulfa (Sulfonamide Antibiotics); aa5 - PMHx: Anxiety; Depression; Hypothyroidism; Osteoporosis; aa5 - Immunization history:: Adult Immunizations unknown. - Social history:: Smoking status: Patient denies any tobacco usage or history of. - Immunization history: Last tetanus immunization: unknown. Screenin:30 Abuse screen: Denies threats or abuse. Nutritional screening: No deficits noted. aa5 Tuberculosis screening: No symptoms or risk factors identified. Fall Risk Fall in past 12 months (25 points). Secondary diagnosis (15 points) hx of falls . IV access (20 points). Total Diaz Fall Scale indicates High Risk Score (45 or more points). Fall prevention measures have been instituted. Side Rails Up X 2 Placed Close to Nursing Station. Primary Survey: 09:27 NO uncontrolled hemorrhage observed. A: The client is alert. Airway: patent. aa5 Breathing/Chest: Respiratory effort: spontaneous, unlabored, Chest inspection: symmetrical rise and fall of the chest. Circulation: Skin color: pink. Disability Client is alert. Exposure/Environment: A warming method has been applied: A warm blanket has been provided to the patient. 10:00 Reassessment Alertness and Airway: Awake and alert. The airway is patent. Breathing: aa5 Respiratory pattern Regular Chest inspection Symmetrical Disability: Alert. Secondary Survey: 09:27 HEENT: No deficits noted. Gastrointestinal: No deficits noted. : No deficits noted. aa5 Musculoskeletal: Reports pain in right hip and right leg. Assessment: 09:27 General: Appears uncomfortable, Behavior is calm, cooperative. Pain: Complains of pain aa5 in right hip and right leg Pain radiates to right leg Pain currently is 10 out of 10 on a pain scale. Quality of pain is described as sharp, shooting, Pain began post fall last night Is continuous. Neuro: Level of Consciousness is awake, alert, obeys commands, Oriented to person, place, time, situation. EENT: No signs and/or symptoms were reported regarding the EENT system. Cardiovascular: Heart tones S1 S2 present Rhythm is regular. Respiratory: Airway is patent Respiratory effort is even, unlabored, Respiratory pattern is regular, symmetrical. GI: Abdomen is round non-distended, Bowel sounds present X 4 quads. Abd is soft and non tender X 4 quads. Patient currently denies nausea, vomiting. : No signs and/or symptoms were reported regarding the genitourinary system. Derm: Skin is pink, warm \T\ dry. Musculoskeletal: Reports pain in right hip and right leg. 09:50 Reassessment: Pt to CT via stretcher . aa5 10:30 Reassessment: Patient is alert, oriented x 3, equal unlabored respirations, skin aa5 warm/dry/pink. Patient states symptoms have not improved. MD was notified of pain (see MAR). . Pain: Pain currently is 10 out of 10 on a pain scale. 11:20 Reassessment: Patient is alert, oriented x 3, equal unlabored respirations, skin aa5 warm/dry/pink. Patient states symptoms have not improved. MD was notified (see MAR). 11:23 Reassessment: Patient is alert, oriented x 3, equal unlabored respirations, skin aa5 warm/dry/pink. Pt c/o increased pain 10/10 on a pain scale. MD was notified. . 11:27 Reassessment: Pt to x-ray. aa5 12:20 Reassessment: Patient is alert, oriented x 3, equal unlabored respirations, skin aa5 warm/dry/pink. Patient states feeling better. 12:48 Reassessment: Report given to HALIE Carpio at [facility] . aa5 13:10 Reassessment: Patient is alert, oriented x 3, equal unlabored respirations, skin aa5 warm/dry/pink. Awaiting EMS for transfer. . Vital Signs: 09:27 BP 154 / 80; Pulse 82; Resp 16 S; Temp 99.5(O); Pulse Ox 96% on R/A; Weight 61.23 kg aa5 (R); Height 5 ft. 4 in. (162.56 cm) (R); 10:25 Pulse Ox 93% on R/A; aa5 10:27 BP 155 / 74; Pulse 80; Resp 16 S; Pulse Ox 99% on 2 lpm NC; aa5 11:20 BP 145 / 80; Pulse 81; Resp 18 S; Temp 99.0(O); Pulse Ox 99% on 2 lpm NC; aa5 12:20 BP 148 / 75; Pulse 78; Resp 16 S; Pulse Ox 100% on 2 lpm NC; aa5 13:10 BP 136 / 80; Pulse 80; Resp 18 S; Pulse Ox 100% on 2 lpm NC; aa5 09:27 Body Mass Index 23.17 (61.23 kg, 162.56 cm) aa5 Pandora Coma Score: 09:27 Eye Response: spontaneous(4). Verbal Response: oriented(5). Motor Response: obeys aa5 commands(6). Total: 15. Trauma Score (Adult): 09:27 Eye Response: spontaneous(1); Verbal Response: oriented(1); Motor Response: obeys aa5 commands(2); Systolic BP: > 89 mm Hg(4); Respiratory Rate: 10 to 29 per min(4); Sheba Score: 15; Trauma Score: 12 10:27 Eye Response: spontaneous(1); Verbal Response: oriented(1); Motor Response: obeys aa5 commands(2); Systolic BP: > 89 mm Hg(4); Respiratory Rate: 10 to 29 per min(4); Sheba Score: 15; Trauma Score: 12 11:20 Eye Response: spontaneous(1); Verbal Response: oriented(1); Motor Response: obeys aa5 commands(2); Systolic BP: > 89 mm Hg(4); Respiratory Rate: 10 to 29 per min(4); Pandora Score: 15; Trauma Score: 12 12:20 Eye Response: spontaneous(1); Verbal Response: oriented(1); Motor Response: obeys aa5 commands(2); Systolic BP: > 89 mm Hg(4); Respiratory Rate: 10 to 29 per min(4); Pandora Score: 15; Trauma Score: 12 13:10 Eye Response: spontaneous(1); Verbal Response: oriented(1); Motor Response: obeys aa5 commands(2); Systolic BP: > 89 mm Hg(4); Respiratory Rate: 10 to 29 per min(4); Sheba Score: 15; Trauma Score: 12 ED Course: 09:27 Patient arrived in ED. aa5 09:27 Luis Mensah MD is Attending Physician. [facility] 09:27 Arm band placed on. aa5 09:27 Patient has correct armband on for positive identification. Bed in low position. Call aa5 light in reach. Side rails up X2. 09:28 Triage completed. aa5 09:31 Nathalie Storm, HALIE is Primary Nurse. aa5 09:31 Patient maintains SpO2 saturation greater than 95% on room air. Thermoregulation: warm aa5 blanket given to patient. 09:40 Initial lab(s) drawn, by me, sent to lab. Inserted saline lock: 20 gauge in right aa5 forearm, using aseptic technique. Blood collected. 10:05 CT Traumagram (Head C Spine CAP wo con) In Process Unspecified. EDMS 11:58 XRAY Chest (1 view) In Process Unspecified. EDMS 11:58 Pelvis XRAY In Process Unspecified. EDMS 11:58 Hip Right 2 View XRAY In Process Unspecified. EDMS 13:08 Straight cath inserted, using sterile technique, 16 Fr. Specimen obtained. Returned aa5 clear yellow urine. Patient tolerated well. 13:50 Patient transferred, IV remains in place. aa5 13:50 No provider procedures requiring assistance completed. aa5 Administered Medications: 10:30 Drug: NS 0.9% 1000 ml Route: IV; Rate: 125 ml/hr; Site: right forearm; aa5 13:50 Follow up: IV Status: Infusion continued upon transfer aa5 10:30 Drug: NS 0.9% 500 ml Route: IV; Rate: bolus; Site: right forearm; aa5 11:20 Follow up: IV Status: Completed infusion; IV Intake: 500ml aa5 10:30 Drug: fentaNYL (PF) 25 mcg Route: IVP; Site: right forearm; aa5 11:20 Follow up: Response: No adverse reaction; Pain is unchanged, physician notified aa5 10:30 Drug: Zofran (Ondansetron) 4 mg Route: IVP; Site: right forearm; aa5 11:20 Follow up: Response: No adverse reaction aa5 11:25 Drug: fentaNYL (PF) 50 mcg Route: IVP; Site: right forearm; aa5 11:28 Follow up: Response: No adverse reaction aa5 13:50 Drug: fentaNYL (PF) 25 mcg Route: IVP; Site: right forearm; aa5 13:55 Follow up: Response: No adverse reaction aa5 19:38 Follow up: Response: No adverse reaction aa5 Intake: 11:20 IV: 500ml; Total: 500ml. aa5 Output: 13:08 Urine: 200ml (Straight Cath); Total: 200ml. aa5 Outcome: 11:14 ER care complete, transfer ordered by . [facility] 11:14 Patient's length of stay was not longer than 2 hours. aa5 13:50 Transferred by ground EMS to [facility], Transfer form completed. X-rays sent aa5 w/ patient. Note: Report given to [facility] 13:50 Condition: stable 13:50 Instructed on the need for transfer, Demonstrated understanding of instructions. 13:55 Patient left the ED. aa5 Signatures: Dispatcher [employer] EDMS Luis Mensah MD MD cha Williams, Irene, HALIE RN Nathalie Mendoza RN RN aa5 Corrections: (The following items were deleted from the chart) 19: 11:20 Reassessment: Patient is alert, oriented x 3, equal unlabored respirations, skin aa5 warm/dry/pink. Patient states symptoms have not improved. aa5 : 10:30 Reassessment: Patient is alert, oriented x 3, equal unlabored respirations, skin aa5 warm/dry/pink. Patient states symptoms have not improved. aa5 : 10:30 Pain: Pain currently is 10 out of 10 on a pain scale. aa5 aa5 19:34 11:23 Reassessment: Patient is alert, oriented x 3, equal unlabored respirations, skin aa5 warm/dry/pink. Pt c/o increased pain 10/10 on a pain scale. . aa5 19:34 14:08 Patient left the ED. iw aa5 19:37 13:08 Urine 200, (Straight Cath), Output Total 200. aa5 aa5
--- NOTE | 2021-06-29 11:15 | EDPHYS ---
Physician Documentation [facility] Name: Carrie Avery Age: 81 yrs Sex: Female : 1940 Arrival Date: 06/29/2021 Time: : Bed 24 Private MD: ED Physician Luis Mensah HPI: 06/29 11:03 This 81 yrs old Female presents to ER via EMS with complaints of Fall Injury. jatin 11:03 Details of fall: The patient fell from an upright position, while walking. Onset: The jatin symptoms/episode began/occurred just prior to arrival. Historical: - Allergies: : Codeine; aa5 09:27 Sulfa (Sulfonamide Antibiotics); aa5 - PMHx: :27 Anxiety; Depression; Hypothyroidism; Osteoporosis; aa5 - Immunization history:: Adult Immunizations unknown. - Social history:: Smoking status: Patient denies any tobacco usage or history of. - Immunization history: Last tetanus immunization: unknown. ROS: 11:05 Constitutional: Negative for fever, chills, and weight loss, Eyes: Negative for injury, jatin pain, redness, and discharge, ENT: Negative for injury, pain, and discharge, Neck: Negative for injury, pain, and swelling, Cardiovascular: Negative for chest pain, palpitations, and edema, Abdomen/GI: Negative for abdominal pain, nausea, vomiting, diarrhea, and constipation, Back: Negative for injury and pain, : Negative for injury, bleeding, discharge, and swelling, Neuro: Negative for headache, weakness, numbness, tingling, and seizure, Psych: Negative for depression, anxiety, suicide ideation, homicidal ideation, and hallucinations, Allergy/Immunology: Negative for hives, rash, and allergies, Endocrine: Negative for neck swelling, polydipsia, polyuria, polyphagia, and marked weight changes, Hematologic/Lymphatic: Negative for swollen nodes, abnormal bleeding, and unusual bruising. 11:05 Respiratory: Positive for shortness of breath, at rest. 11:05 MS/extremity: Positive for decreased range of motion, pain, tenderness, of the right hip and right upper thigh. Exam: 11:05 Constitutional: This is a well developed, well nourished patient who is awake, alert, jatin and in no acute distress. Head/Face: Normocephalic, atraumatic. Eyes: Pupils equal round and reactive to light, extra-ocular motions intact. Lids and lashes normal. Conjunctiva and sclera are non-icteric and not injected. Cornea within normal limits. Periorbital areas with no swelling, redness, or edema. ENT: Nares patent. No nasal discharge, no septal abnormalities noted. Tympanic membranes are normal and external auditory canals are clear. Oropharynx with no redness, swelling, or masses, exudates, or evidence of obstruction, uvula midline. Mucous membranes moist. Neck: Trachea midline, no thyromegaly or masses palpated, and no cervical lymphadenopathy. Supple, full range of motion without nuchal rigidity, or vertebral point tenderness. No Meningismus. Cardiovascular: Regular rate and rhythm with a normal S1 and S2. No gallops, murmurs, or rubs. Normal PMI, no JVD. No pulse deficits. Respiratory: Lungs have equal breath sounds bilaterally, clear to auscultation and percussion. No rales, rhonchi or wheezes noted. No increased work of breathing, no retractions or nasal flaring. Abdomen/GI: Soft, non-tender, with normal bowel sounds. No distension or tympany. No guarding or rebound. No evidence of tenderness throughout. Back: No spinal tenderness. No costovertebral tenderness. Full range of motion. Female : Normal external genitalia. Skin: Warm, dry with normal turgor. Normal color with no rashes, no lesions, and no evidence of cellulitis. Neuro: Awake and alert, GCS 15, oriented to person, place, time, and situation. Cranial nerves II-XII grossly intact. Motor strength 5/5 in all extremities. Sensory grossly intact. Cerebellar exam normal. Normal gait. Psych: Awake, alert, with orientation to person, place and time. Behavior, mood, and affect are within normal limits. 11:05 Neck: Exam negative for 11:05 Chest/axilla: Inspection: normal, Palpation: tenderness, that is moderate, of the right lateral posterior chest and right lateral anterior chest. 11:05 Musculoskeletal/extremity: ROM: limited active range of motion due to pain, limited passive range of motion due to pain, in the right hip, right gluteal fold, right inner thigh and right upper thigh, Circulation is intact in all extremities. Sensation intact. Compartment Syndrome exam of affected extremity: is normal. DVT Exam: pain, tenderness, of the right leg, of the right hip, right gluteal fold, right inner thigh and right quadriceps. 11:15 ECG was reviewed by the Attending Physician. jatin Vital Signs: 09:27 BP 154 / 80; Pulse 82; Resp 16 S; Temp 99.5(O); Pulse Ox 96% on R/A; Weight 61.23 kg aa5 (R); Height 5 ft. 4 in. (162.56 cm) (R); 10:25 Pulse Ox 93% on R/A; aa5 10:27 BP 155 / 74; Pulse 80; Resp 16 S; Pulse Ox 99% on 2 lpm NC; aa5 11:20 BP 145 / 80; Pulse 81; Resp 18 S; Temp 99.0(O); Pulse Ox 99% on 2 lpm NC; aa5 12:20 BP 148 / 75; Pulse 78; Resp 16 S; Pulse Ox 100% on 2 lpm NC; aa5 13:10 BP 136 / 80; Pulse 80; Resp 18 S; Pulse Ox 100% on 2 lpm NC; aa5 09:27 Body Mass Index 23.17 (61.23 kg, 162.56 cm) aa5 Marmarth Coma Score: 09:27 Eye Response: spontaneous(4). Verbal Response: oriented(5). Motor Response: obeys aa5 commands(6). Total: 15. Trauma Score (Adult): 09:27 Eye Response: spontaneous(1); Verbal Response: oriented(1); Motor Response: obeys aa5 commands(2); Systolic BP: > 89 mm Hg(4); Respiratory Rate: 10 to 29 per min(4); Marmarth Score: 15; Trauma Score: 12 10:27 Eye Response: spontaneous(1); Verbal Response: oriented(1); Motor Response: obeys aa5 commands(2); Systolic BP: > 89 mm Hg(4); Respiratory Rate: 10 to 29 per min(4); Sheba Score: 15; Trauma Score: 12 11:20 Eye Response: spontaneous(1); Verbal Response: oriented(1); Motor Response: obeys aa5 commands(2); Systolic BP: > 89 mm Hg(4); Respiratory Rate: 10 to 29 per min(4); Marmarth Score: 15; Trauma Score: 12 12:20 Eye Response: spontaneous(1); Verbal Response: oriented(1); Motor Response: obeys aa5 commands(2); Systolic BP: > 89 mm Hg(4); Respiratory Rate: 10 to 29 per min(4); Sheba Score: 15; Trauma Score: 12 13:10 Eye Response: spontaneous(1); Verbal Response: oriented(1); Motor Response: obeys aa5 commands(2); Systolic BP: > 89 mm Hg(4); Respiratory Rate: 10 to 29 per min(4); Marmarth Score: 15; Trauma Score: 12 MDM: 09:27 Patient medically screened. jatin 11:09 Differential diagnosis: closed head injury, contusion, fracture, multiple trauma, jatin sprain, strain. Data reviewed: vital signs, nurses notes, EMS record, lab test result(s), EKG, radiologic studies, CT scan, plain films. 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 Test interpretation: by ED physician or midlevel provider: ECG, plain radiologic studies. Counseling: I had a detailed discussion with the patient and/or guardian regarding: the historical points, exam findings, and any diagnostic results supporting the discharge/admit diagnosis, lab results, radiology results, the need to transfer to another facility, for higher level of care, [facility] does not immediately have the required specialist. 06/29 09:31 Order name: Basic Metabolic Panel; Complete Time: 10:57 [facility] 06/29 09:31 Order name: CBC with Diff 06/29 09:31 Order name: LFT's; Complete Time: 10:57 [facility] 06/29 09:31 Order name: Magnesium; Complete Time: 10:57 [facility] 06/29 09:31 Order name: NT PRO-BNP; Complete Time: 10:57 [facility] 06/29 09:31 Order name: PT-INR; Complete Time: 10:57 [facility] 06/29 09:31 Order name: Troponin HS; Complete Time: 10:57 [facility] 06/29 09:31 Order name: CK; Complete Time: 10:57 [facility] 06/29 09:31 Order name: Ckmb; Complete Time: 10:57 [facility] 06/29 09:32 Order name: SARS-COV-2 RT PCR (Document "Date of Onset" if Symptomatic) [facility] 06/29 09:57 Order name: CBC Smear Scan [facility] 06/29 10:58 Order name: Urine Osmolality [facility] 06/29 10:58 Order name: Urine Sodium Random [facility] 06/29 09:31 Order name: XRAY Chest (1 view) [facility] 06/29 09:31 Order name: EKG; Complete Time: 09:31 [facility] 06/29 09:31 Order name: Cardiac monitoring; Complete Time: 10:40 [facility] 06/29 09:31 Order name: EKG - Nurse/Tech; Complete Time: 10:40 [facility] 06/29 09:31 Order name: IV Saline Lock; Complete Time: 10:40 [facility] 06/29 09:31 Order name: Labs collected and sent; Complete Time: 10:40 [facility] 06/29 09:31 Order name: Pelvis XRAY [facility] 06/29 09:31 Order name: Hip Right 2 View XRAY [facility] 06/29 09:31 Order name: CT Traumagram (Head C Spine CAP wo con); Complete Time: 10:57 [facility] 06/29 13:09 Order name: Urine Dipstick-Ancillary [facility] 06/29 09:31 Order name: O2 Per Protocol; Complete Time: 10:40 [facility] 06/29 09:31 Order name: O2 Sat Monitoring; Complete Time: 10:41 [facility] 06/29 09:31 Order name: Urine Dipstick-Ancillary (obtain specimen); Complete Time: 13:08 [facility] 06/29 13:08 Order name: Straight Cath; Complete Time: 13:08 [facility] EC:15 Rate is 81 beats/min. Rhythm is regular. QRS O'Brien is Normal. TN interval is normal. QRS jatin interval is normal. QT interval is normal. No Q waves. T waves are Normal. No ST changes noted. Clinical impression: No evidence of ischemia. Interpreted by me. Reviewed by me. Administered Medications: 10:30 Drug: NS 0.9% 1000 ml Route: IV; Rate: 125 ml/hr; Site: right forearm; aa 13:50 Follow up: IV Status: Infusion continued upon transfer aa 10:30 Drug: NS 0.9% 500 ml Route: IV; Rate: bolus; Site: right forearm; aa5 11:20 Follow up: IV Status: Completed infusion; IV Intake: 500ml [facility] 10:30 Drug: fentaNYL (PF) 25 mcg Route: IVP; Site: right forearm; aa5 11:20 Follow up: Response: No adverse reaction; Pain is unchanged, physician notified aa5 10:30 Drug: Zofran (Ondansetron) 4 mg Route: IVP; Site: right forearm; aa5 11:20 Follow up: Response: No adverse reaction aa5 11:25 Drug: fentaNYL (PF) 50 mcg Route: IVP; Site: right forearm; aa5 11:28 Follow up: Response: No adverse reaction aa5 13:50 Drug: fentaNYL (PF) 25 mcg Route: IVP; Site: right forearm; aa5 13:55 Follow up: Response: No adverse reaction aa5 19:38 Follow up: Response: No adverse reaction aa5 Disposition Summary: 06/29/21 11:14 Transfer Ordered Transfer Location: [facility] Reason: Higher level of care jatin Condition: Fair jatin Problem: new jatin Symptoms: have improved jatin Accepting Physician: to [facility](06/29/21 14:08) iw Diagnosis - Fall on same level, unspecified jatin - Nondisplaced fracture of base of neck of right femur, initial encounter for closed jatin fracture - Multiple fractures of ribs, right side jatin - Other fracture of first lumbar vertebra, initial encounter for closed fracture - jatin compression, with retropulsion - Weakness jatin - Hypo-osmolality and hyponatremia jatin Forms: - Medication Reconciliation Form jatin - SBAR form jatin Signatures: Dispatcher [employer] Luis Arredondo MD MD cha Williams, Irene, RN RN iw Nathalie Storm RN RN aa5 Corrections: (The following items were deleted from the chart) 14:08 11:14 to [facility] jatin iw
[2021-06-29 11:49] LABS: Blood Morphology Comment NOT SEEN (NOT SEEN); Platelet Estimate ADEQ; White Blood Cell Scan OK (OK)
--- NOTE | 2021-06-29 12:05 | RAD REPORT ---
EXAM DESCRIPTION: RAD - Chest Single View - 06/29/2021 11:56 am CLINICAL HISTORY: COUGH COMPARISON: Chest Single View dated 04/02/2018; Chest Pa And Lat (2 Views) dated 09/16/2016; CHEST PA AND LAT 2 VIEW dated 01/27/2011; CHEST SINGLE VIEW dated 11/01/2009 FINDINGS: Lines: None. Lungs: No evidence of edema or pneumonia. Pleural: No significant pleural effusions or pneumothorax. Cardiac: The heart size is within normal limits. Bones: No acute fractures. Other: IMPRESSION: No acute cardiopulmonary disease.
--- NOTE | 2021-06-29 12:06 | RAD REPORT ---
EXAM DESCRIPTION: RAD - Hip Right 2 View - 06/29/2021 11:56 am CLINICAL HISTORY: PAIN COMPARISON: No comparisons FINDINGS/IMPRESSION: Displaced right subcapital femoral neck fracture. No dislocation. Right acetabu lar degenerative changes are noted.
--- NOTE | 2021-06-29 12:07 | RAD REPORT ---
EXAM DESCRIPTION: RAD - Pelvis - 06/29/2021 11:56 am CLINICAL HISTORY: PAIN COMPARISON: PELVIS dated 01/31/2014; Hip Right 2 View dated 06/29/2021 FINDINGS/IMPRESSION: Right subcapital femoral neck fracture which is displaced. No pelvic fractures identified. Moderate degenerative changes are present at the pubic symphysis. At least mild bilateral acetabular degenerative changes.
[2021-06-29 13:09] LABS: Urine Blood Negative (Negative); Urine Glucose Negative (Negative); Urine Protein Negative (Negative)
--- NOTE | 2021-06-30 10:21 | EKG ---
Test Date: 2021-06-29 Test Time: 10:27:25 Director Advertising: ROSIBEL MEASUREMENT RESULTS: Intervals: Rate: 81 IN: 184 QRSD: 158 QT: 444 QTc: 515 [place]: P: 67 IN: 184 QRS: 5 T: 143 INTERPRETIVE STATEMENTS: Normal sinus rhythm Left bundle branch block Abnormal ECG Compared to ECG 01/08/2020 12:43:03 Left bundle-branch block now present Left ventricular hypertrophy no longer present Early repolarization no longer present Electronically Signed On 06-30-21 10:17:47 CDT by Manpreet Bell
== END 2021-06-29 14:08 | disposition short-term general hospital (02) ==
LOC: ER 09:29
DX: S72.044A Nondisplaced fracture of base of neck of right femur, initial encounter for closed fracture (principal); S22.41XA Multiple fractures of ribs, right side, initial encounter for closed fracture; S32.018A Other fracture of first lumbar vertebra, initial encounter for closed fracture; R53.1 Weakness; E87.1 Hypo-osmolality and hyponatremia; W18.30XA Fall on same level, unspecified, initial encounter; Z88.5 Allergy status to narcotic agent; Z88.2 Allergy status to sulfonamides; Z20.822 Contact with and (suspected) exposure to COVID-19
CPT/HCPCS: 96361; 93005; 85025; 80048; 36415; 83735; 82550; 85610; 84300; 80076; 81003; 84484; 82553; 83880; 83935; 70450; 71250; 72125; 71045; 72170; 73502; 51702; 96375; 96374; 99285; U0003; J3010 ×3; J7040; J7030; J2405

== ENCOUNTER 2024-03-07 20:51 | Observation (INO) | payer OTHER, MEDICARE ==
[2024-03-07 21:46] LABS: PT Prothrombin Time 10.7 SECONDS (9.4-12.5); Protime INR 1.02
[2024-03-07 21:50] LABS: Absolute Eosinophils 0.1 K/uL (0-0.5); Absolute Lymphocytes (CBC) 1.9 K/uL (0.7-4.9); Absolute Monocytes 0.4 K/uL (0.1-1.3); Absolute Neutrophil 4.8 K/uL (1.8-8.0); Basophils % 0.4 % (0-1.3); Eosinophils % 0.9 % (0-4.4); Hematocrit 37.7 % (36.0-45.0); Hemoglobin 12.9 g/dL (12.0-15.0); Lymphocytes % 26.5 % (15.3-44.8); MCH 28.8 pg (27.0-35.0); MCHC 34.1 g/dL (32.0-36.0); MCV 84.6 fL (80-100); MPV 8.2 fL (7.6-11.3); Monocytes % 5.3 % (3.3-12.3); Neutrophils % 66.9 % (41.7-73.7); Platelets 220 thou/uL (152-406); RBC Red Blood Cell Count 4.46 M/uL (3.86-4.86)
[2024-03-07 21:59] LABS: ALT/SGPT 21 U/L (13-56); AST/SGOT 11 U/L (15-37); Albumin 3.8 g/dL (3.4-5.0); Alkaline Phosphatase 46 U/L (45-117); BUN Blood Urea Nitrogen 10 mg/dL (7-18); Bicarbonate 29 mEq/L (21-32); Bilirubin Total 0.4 mg/dL (0.2-1.0); Globulin 3.8 g/dL (2.3-3.5); Glomerular Filtration Rate 63 ml/min (=/>90); Glucose Level 107 mg/dL (74-106); Magnesium 2.2 mg/dL (1.6-2.4); NT PRO-BNP 3286 pg/mL (<450); Protein, Total 7.6 g/dL (6.4-8.2); Sodium Level 135 mEq/L (136-145); Troponin High Sensitivity 34.2 pg/mL (<58.9)
[2024-03-07 22:02] LABS: Bilirubin Direct < 0.2 mg/dL (0-0.2); Bilirubin Indirect, Calculated 0.2 mg/dL (0.2-0.8)
[2024-03-07 22:15] LABS: Thyroid Stimulating Hormone 0.878 uIU/mL (0.358-3.740)
[2024-03-07 22:17] LABS: C-Reactive Protein < 2.90 mg/L (<3.00)
--- NOTE | 2024-03-07 22:21 | RAD REPORT ---
EXAM: Chest Single View HISTORY: CHEST PAIN COMPARISON: 06/29/2021 FINDINGS: LUNGS/PLEURA: The lungs are clear. No pleural effusions or pneumothorax. No pulmonary edema. MEDIASTINUM: The mediastinal silhouette is within normal limits. CARDIAC: Mild cardiomegaly UPPER ABDOMEN: No significant abnormality. BONES: No acute abnormality. LINES/TUBES/OTHER: N/A IMPRESSION: No evidence of acute cardiopulmonary disease.
--- NOTE | 2024-03-07 23:48 | ER ---
Nurse's Notes [facility] Name: Carrie Avery Age: 84 yrs Sex: Female : 1940 Arrival Date: 03/07/2024 Time: 20:51 Bed 14 Private MD: Diagnosis: Angina pectoris, unspecified;New onset left bundle branch block Presentation: 03/07 21:05 Chief complaint: Patient states: sent by urgent care for abnormal EKG. C/O pain to left vc1 breast feels like indigestion. Coronavirus screen: Client denies travel out of the [place] in the last 14 days. At this time, the client does not indicate any symptoms associated with coronavirus-19. Ebola Screen: Patient negative for fever greater than or equal to 101.5 degrees Fahrenheit, and additional compatible Ebola Virus Disease symptoms Patient denies exposure to infectious person. Patient denies travel to an Ebola-affected area in the 21 days before illness onset. No symptoms or risks identified at this time. Initial Sepsis Screen: Does the patient meet any 2 criteria? No. Patient's initial sepsis screen is negative. Does the patient have a suspected source of infection? No. Patient's initial sepsis screen is negative. Risk Assessment: Do you want to hurt yourself or someone else? Patient reports no desire to harm self or others. Onset of symptoms was March 06, 2024. 21:05 Method Of Arrival: Ambulatory vc1 21:05 Acuity: MIMI 3 vc1 Historical: - Allergies: 21:08 Codeine; vc1 21:08 Sulfa (Sulfonamide Antibiotics); vc1 - Home Meds: 21:08 levothyroxine 88 mcg oral tablet daily [Active]; lorazepam 1 mg oral tablet [Active]; vc1 sertraline 100 mg oral tablet [Active]; pregabalin 50 mg oral capsule [Active]; spironolactone 50 mg Oral tablet [Active]; Vitamin D2 1,250 mcg (50,000 unit) oral capsule [Active]; bupropion HCl 300 mg Oral Tablet, Extended Release 24 hr [Active]; Cosamin DS 500-400 mg oral tablet [Active]; - PMHx: 21:08 Anxiety; Depression; Hypothyroidism; Osteoporosis; vc1 - PSHx: 21:08 partial right hip replacement (Osteoporosis); vc1 - Immunization history:: Adult Immunizations unknown. - Infectious Disease History:: Denies. - Social history:: Smoking status: Patient denies any tobacco usage or history of. - Family history:: not pertinent. Screenin:13 [facility] ED Fall Risk Assessment (Adult) History of falling in the last 3 months, vc1 including since admission No falls in past 3 months (0 pts) Confusion or Disorientation No (0 pts) Intoxicated or Sedated No (0 pts) Impaired Gait Yes (1 pt) Mobility Assist Device Used Yes (1 pt) Altered Elimination No (0 pt) Score/Fall Risk Level 0 - 2 = Low Risk Oriented to surroundings, Maintained a safe environment, Educated pt \T\ family on fall prevention, incl call for assistance when getting out of bed, Hourly rounding (assess needs \T\ fall precautionary measures) done, Used ambulatory aids as needed (educated on \T\ assisted with). Abuse screen: Denies threats or abuse. Nutritional screening: No deficits noted. Tuberculosis screening: No symptoms or risk factors identified. Assessment: 21:36 General: Appears in no apparent distress. comfortable, Behavior is calm, cooperative, jb4 appropriate for age. Pain: Complains of pain in anterior aspect of left upper chest Pain radiates to LEFT SHOULDER Pain currently is 7 out of 10 on a pain scale. Neuro: Level of Consciousness is awake, alert, obeys commands, Oriented to person, place, time, situation. Cardiovascular: Patient's skin is warm and dry. Respiratory: Airway is patent Respiratory effort is even, unlabored, Respiratory pattern is regular, symmetrical. Derm: Skin is intact, Skin is pink, warm \T\ dry. 22:30 Reassessment: Patient appears in no apparent distress at this time. Patient and/or jb4 family updated on plan of care and expected duration. Pain level reassessed. Patient is alert, oriented x 3, equal unlabored respirations, skin warm/dry/pink. 23:41 Reassessment: Patient appears in no apparent distress at this time. Patient and/or jb4 family updated on plan of care and expected duration. Pain level reassessed. Patient is alert, oriented x 3, equal unlabored respirations, skin warm/dry/pink. 03/08 00:32 Reassessment: Patient appears in no apparent distress at this time. Patient and/or jb4 family updated on plan of care and expected duration. Pain level reassessed. Patient is alert, oriented x 3, equal unlabored respirations, skin warm/dry/pink. Vital Signs: 03/07 21:05 BP 146 / 71; Pulse 86; Resp 18; Temp 98.6; Pulse Ox 98% ; Weight 61.23 kg; Height 5 ft. vc1 1 in. ; Pain 7/10; 22:45 BP 131 / 61; Pulse 72; Resp 16; Pulse Ox 97% ; jb4 23:30 BP 128 / 86; Pulse 73; Resp 16; Pulse Ox 99% on R/A; jb4 03/08 00:32 BP 132 / 65; Pulse 72; Resp 16; Pulse Ox 96% on R/A; jb4 03/07 21:05 Body Mass Index 25.51 (61.23 kg, 154.94 cm) vc1 03/07 21:05 Pain Scale: Adult vc1 [place] Coma Score: 20:34 Eye Response: spontaneous(4). Motor Response: obeys commands(6). Verbal Response: sp4 oriented(5). Total: 15. ED Course: 03/07 20:58 Patient arrived in ED. gm2 21:00 Andre Eason MD is Attending Physician. sp4 21:08 Triage completed. vc1 21:12 Arm band placed on left wrist. vc1 21:20 Inserted saline lock: 18 gauge in right antecubital area, using aseptic technique. jb4 Blood collected. 22:08 XRAY Chest (1 view) In Process Unspecified. EDMS 23:47 Garrick Chaidez MD is Hospitalizing Provider. sp4 Administered Medications: No medications were administered Medication: 21:13 VIS not applicable for this client. vc1 Outcome: 23:48 Decision to Hospitalize by Provider. sp4 03/08 01:53 Patient left the ED. jb4 Signatures: Dispatcher [employer] EDMS Pepe Sheikh RN HALIE jb4 Yamilka Mackenzie RN RN vc1 Andre Eason MD MD sp4 Sara Ambrose gm2
--- NOTE | 2024-03-07 23:48 | EDPHYS ---
Physician Documentation [facility] Name: Carrie Avery Age: 84 yrs Sex: Female : 1940 Arrival Date: 03/07/2024 Time: 20:51 Bed 14 Private MD: ED Physician Andre Eason HPI: 03/07 21:00 This 84 yrs old Female presents to ER via Unassigned with complaints of sp4 Shoulder Pain, Lt breast pain. 03/08 20:33 Patient 84-year-old female presents with left-sided chest pain and left shoulder pain. sp4 Patient went to the urgent care clinic today and her EKG today revealed left bundle branch block. Patient is here for evaluation.. Historical: - Allergies: 03/07 21:08 Codeine; vc1 21:08 Sulfa (Sulfonamide Antibiotics); vc1 - Home Meds: 21:08 levothyroxine 88 mcg oral tablet daily [Active]; lorazepam 1 mg oral tablet [Active]; vc1 sertraline 100 mg oral tablet [Active]; pregabalin 50 mg oral capsule [Active]; spironolactone 50 mg Oral tablet [Active]; Vitamin D2 1,250 mcg (50,000 unit) oral capsule [Active]; bupropion HCl 300 mg Oral Tablet, Extended Release 24 hr [Active]; Cosamin DS 500-400 mg oral tablet [Active]; - PMHx: 21:08 Anxiety; Depression; Hypothyroidism; Osteoporosis; vc1 - PSHx: 21:08 partial right hip replacement (Osteoporosis); vc1 - Immunization history:: Adult Immunizations unknown. - Infectious Disease History:: Denies. - Social history:: Smoking status: Patient denies any tobacco usage or history of. - Family history:: not pertinent. ROS: 03/08 20:34 Constitutional: Negative for fever, chills, and weight loss, positive for left chest sp4 pain positive for left chest wall pain All other systems are negative, Exam: 20:34 Constitutional: This is a well developed, well nourished patient who is awake, alert, sp4 and in no acute distress. Head/Face: Normocephalic, atraumatic. Eyes: Pupils equal round and reactive to light, extra-ocular motions intact. Lids and lashes normal. Conjunctiva and sclera are not injected. Cornea within normal limits. Periorbital areas with no swelling, redness, or edema. ENT: Nares patent. No nasal discharge, no septal abnormalities noted. Tympanic membranes are normal and external auditory canals are clear. Oropharynx with no redness, swelling, or masses, exudates, or evidence of obstruction, uvula midline. Mucous membranes moist. Neck: Trachea midline, no thyromegaly or masses palpated, and no cervical lymphadenopathy. Supple, full range of motion without nuchal rigidity, or vertebral point tenderness. Chest/axilla: Normal chest wall appearance and motion. Nontender with no deformity. No lesions are appreciated. Cardiovascular: Regular rate and rhythm with a normal S1 and S2. No gallops, murmurs, or rubs. Normal PMI, no JVD. No pulse deficits. Respiratory: Lungs have equal breath sounds bilaterally, clear to auscultation and percussion. No rales, rhonchi or wheezes noted. No increased work of breathing, no retractions or nasal flaring. Abdomen/GI: Soft, with normal bowel sounds. No distension or tympany. No guarding or rebound. No evidence of tenderness throughout. Back: No spinal tenderness. No costovertebral tenderness. Skin: Warm, dry with normal turgor. Normal color with no rashes, no lesions, and no evidence of cellulitis. MS/ Extremity: Pulses equal, no cyanosis. Neurovascular intact. Full, normal range of motion. Neuro: Awake and alert, GCS 15, oriented to person, place, time, and situation. Cranial nerves II-XII grossly intact. Motor strength 5/5 in all extremities. Sensory grossly intact. Psych: Awake, alert, with orientation to person, place and time. Behavior, mood, and affect are within normal limits 20:34 ECG was reviewed by the Attending Physician. LBBB Vital Signs: 03/07 21:05 BP 146 / 71; Pulse 86; Resp 18; Temp 98.6; Pulse Ox 98% ; Weight 61.23 kg; Height 5 ft. vc1 1 in. ; Pain 7/10; 22:45 BP 131 / 61; Pulse 72; Resp 16; Pulse Ox 97% ; jb4 23:30 BP 128 / 86; Pulse 73; Resp 16; Pulse Ox 99% on R/A; jb4 03/08 00:32 BP 132 / 65; Pulse 72; Resp 16; Pulse Ox 96% on R/A; jb4 03/07 21:05 Body Mass Index 25.51 (61.23 kg, 154.94 cm) vc1 03/07 21:05 Pain Scale: Adult vc1 [place] Coma Score: 20:34 Eye Response: spontaneous(4). Motor Response: obeys commands(6). Verbal Response: sp4 oriented(5). Total: 15. MDM: 03/07 21:27 Medical Screening Exam initiated 4 03/08 20:38 Differential diagnosis: DJD, tendonitis, chest pain. Data reviewed: vital signs, nurses sp4 notes, old medical records, lab test result(s), EKG, radiologic studies, plain films. 20:38 Consideration of Admission/Observation Escalation of care including sp4 admission/observation considered. ED course: Patient discussed with her PMD and admitted for observation and Cardiology assessment . 03/07 21:14 Order name: Basic Metabolic Panel; Complete Time: 22:22 4 03/07 21:14 Order name: CBC with Diff; Complete Time: 22:22 4 03/07 21:14 Order name: LFT's; Complete Time: 22:22 4 03/07 21:14 Order name: Magnesium; Complete Time: 22:22 sp4 03/07 21:14 Order name: NT PRO-BNP; Complete Time: 22:22 sp4 03/07 21:14 Order name: PT-INR; Complete Time: 22:22 4 03/07 21:14 Order name: Troponin HS; Complete Time: 22:22 4 03/07 21:16 Order name: TSH; Complete Time: 22:22 4 03/07 21:16 Order name: T4 Free; Complete Time: 22:23 4 03/07 21:16 Order name: CRP; Complete Time: 22:23 4 03/07 21:14 Order name: XRAY Chest (1 view); Complete Time: 22:23 4 03/07 21:14 Order name: EKG; Complete Time: :15 sp4 03/07 23:43 Order name: CONS Physician Consult [facility] 03/07 21:14 Order name: Cardiac monitoring; Complete Time: 21:39 sp4 03/07 21:14 Order name: EKG - Nurse/Tech; Complete Time: 21:39 sp4 03/07 21:14 Order name: IV Saline Lock; Complete Time: 21:39 sp4 03/07 21:14 Order name: Labs collected and sent; Complete Time: 21:39 sp4 03/07 21:14 Order name: O2 Per Protocol; Complete Time: 21:39 sp4 03/07 21:14 Order name: O2 Sat Monitoring; Complete Time: 21:39 sp4 EC:34 Rate is 80 beats/min. Rhythm is regular, Sinus Rhythm. QRS [place] is Normal. WI interval sp4 is normal. QRS interval is prolonged. QT interval is normal. No ST changes noted. Clinical impression: No evidence of ischemia. Interpreted by me. Reviewed by me. Administered Medications: No medications were administered Disposition: 20:39 Chart complete. sp4 Disposition Summary: 03/07/24 23:48 Hospitalization Ordered Notes: Hospitalization Status: Observation sp4 Provider: Garrick Chaidez sp4 Location: Telemetry/MedSurg (observation) sp4 Condition: Stable sp4 Problem: new sp4 Symptoms: have improved sp4 Bed/Room Type: Standard sp4 Room Assignment: 211(03/08/24 01:35) rv1 Diagnosis - Angina pectoris, unspecified sp4 - New onset left bundle branch block sp4 Forms: - Medication Reconciliation Form sp4 - SBAR form sp4 - Leadership Thank You Letter sp4 Signatures: Dispatcher [employer] Yamilka Moy RN RN vc1 Joyce Allen rv1 Andre Eason MD MD sp4 Corrections: (The following items were deleted from the chart) 03/07 21:15 21:15 BASIC METABOLIC PANEL+C.LAB.BRZ ordered. EDMS EDMS 21:15 21:15 CBC+H.LAB.BRZ ordered. EDMS EDMS 21:15 21:15 HEPATIC FUNCTION+C.LAB.BRZ ordered. EDMS EDMS 21:15 21:15 MAGNESIUM+C.LAB.BRZ ordered. EDMS EDMS 21:15 21:15 PROBNP+C.LAB.BRZ ordered. EDMS EDMS 21:15 21:15 PROTIME (+INR)+COAG.LAB.BRZ ordered. EDMS EDMS 21:15 21:15 Troponin High Sensitivity+C.LAB.BRZ ordered. EDMS EDMS 21: 21:17 THYROID STIMULAT HORMONE+C.LAB.BRZ ordered. EDMS EDMS 21: 21:17 T4 FREE+C.LAB.BRZ ordered. EDMS EDMS : 21:17 C-REACTIVE PROTEIN+C.LAB.BRZ ordered. EDMS EDMS 23:49 23:48 sp4 rv1 03/08 01:35 03/07 23:49 219 rv1 rv1
[2024-03-08] MEDS ORDERED: ACETAMINOPHEN 325 MG TABLET PO PRN (02:23)
[2024-03-08] MEDS ORDERED: ONDANSETRON 4 MG/2 ML VIAL IV PRN (02:23)
[2024-03-08] MEDS ORDERED: ALBUTEROL 2.5 MG/3 ML NEB SOL NEB PRN (02:23)
--- NOTE | 2024-03-08 11:44 | EKG ---
Test Date: 2024-03-07 Test Time: 21:06:08 Medicinal Plant Picker: ARIANE MEASUREMENT RESULTS: Intervals: Rate: 86 MI: 158 QRSD: 154 QT: 422 QTc: 504 [place]: P: 72 MI: 158 QRS: 4 T: 147 INTERPRETIVE STATEMENTS: Normal sinus rhythm Left bundle branch block Abnormal ECG Compared to ECG 06/29/2021 10:27:25 No significant changes Electronically Signed On 03-08-24 11:43:41 TELEPHONE SALES AGENT by Ronn Monk
--- NOTE | 2024-03-08 12:22 | P.SSS ---
Patient History Date of Service: 03/08/24 Reason for admission: CHEST PAIN History of Present Illness: MATTHEW HAS HAD CHEST PAIN TWICE IN LAST ONE WEEK. NOW SHE IS PAINFREE. PAIN DID NOT RADIATE AND HAD NO ASSOSICATED SS. SHE HAS LBBB ON EKG. THERE IS NO OLD EKG TO COMPARE. I TALKED TO DR. HERNANDEZ. SHE IS VERY STABLE TO GO HOME. HE WILL SEE HER TOMORROW AT 8 AM AND SET UP STRESS TEST. I CALLED IN NTG SL. HER BNP IS HIGH BUT SHE HAS NO CHF SYMPTOMS. Allergies Milk Containing Products (Dairy) Allergy (Severe, Verified 03/08/24 04:14) Hives/Rash Home medications list reviewed: Yes Home Medications: Bupropion HCl [Budeprion Xl] 300 mg PO ONCE 03/08/24 Ergocalciferol (Vitamin D2) [Vitamin D2] 1,250 mcg PO ONCE 03/08/24 Glucosamine/MSM/Boswel/[id number] [Cosamin [place] Tablet] 1 each PO ONCE 03/08/24 LORazepam [Ativan*] 1 mg PO BID PRN 03/08/24 Levothyroxine [Synthroid*] 88 mcg PO [id number] 03/08/24 Pregabalin 50 mg PO ONCE 03/08/24 Sertraline [Zoloft*] 100 mg PO ONCE 03/08/24 Spironolactone 50 mg PO ONCE 03/08/24 - Past Medical/Surgical History Has patient received pneumonia vaccine in the past: Yes Review of Systems 10-point ROS is otherwise unremarkable Physical Examination - Vital Signs Temperature: 97.8 F Blood Pressure: 140/72 Pulse: 73 Respirations: 18 Pulse Ox (%): 95 - Physical Exam General: Alert, In no apparent distress HEENT: Atraumatic, PERRLA, Mucous membr. moist/pink, EOMI, Sclerae nonicteric Neck: Supple, 2+ carotid pulse no bruit, No LAD, Without JVD or thyroid abnormality Respiratory: Clear to auscultation bilaterally, Normal air movement Cardiovascular: Regular rate/rhythm, Normal S1 S2 Gastrointestinal: Normal bowel sounds, No tenderness Musculoskeletal: No tenderness Integumentary: No rashes Neurological: Normal gait, Normal speech, Normal strength at 5/5 x4 extr, Normal tone, Normal affect Lymphatics: No axilla or inguinal lymphadenopathy - Studies Laboratory Data (last 24 hrs) 03/07/24 03/07/24 03/07/24 21:20 21:20 21:20 WBC 7.20 Hgb 12.9 Hct 37.7 Plt Count 220 PT 10.7 INR 1.02 Sodium 135 L Potassium 4.0 BUN 10 Creatinine 0.90 Glucose 107 H Magnesium 2.2 Total Bilirubin 0.4 AST 11 L ALT 21 Alkaline Phosphatase 46 - Diagnosis (Problem(s)) (1) Atypical chest pain Current Visit: Yes Status: Acute Plan: SHE HAS LBBB ON EKG. THERE IS NO OLD EKG TO COMPARE. I TALKED TO DR. HERNANDEZ. SHE IS VERY STABLE TO GO HOME. HE WILL SEE HER TOMORROW AT 8 AM AND SET UP STRESS TEST. I CALLED IN NTG SL. HER BNP IS HIGH BUT SHE HAS NO CHF SYMPTOMS. - Disposition Disposition: ROUTINE DISCHARGE Condition: FAIR
[2024-03-09 02:38] VITALS: BP 140/72; TEMP 97.8; O2SAT 96; BMI 18.8
== END 2024-03-08 14:01 | disposition home or self-care (01) ==
LOC: ER 20:51 → ERHOLD 23:39 → 2ND 03-08 01:36
PROVIDERS: ADMIT Internal Medicine; ATTEND Internal Medicine
DX: R07.89 Other chest pain (principal); I44.7 Left bundle-branch block, unspecified; F41.9 Anxiety disorder, unspecified; F32.A Depression, unspecified; E03.9 Hypothyroidism, unspecified; M81.0 Age-related osteoporosis without current pathological fracture; Z88.2 Allergy status to sulfonamides; Z91.011 Allergy to milk products; Z96.641 Presence of right artificial hip joint
CPT/HCPCS: 93005; 85025; 80048; 36415; 83735; 85610; 80076; 84443; 84484 ×2; 84439; 83880; 86140; 71045; 99283; G0378 ×3

== ENCOUNTER 2024-04-04 12:26 | Day surgery (SDC) | payer OTHER, MEDICARE ==
[2024-04-03 10:28] LABS: Absolute Eosinophils 0.1 K/uL (0-0.5); Absolute Lymphocytes (CBC) 1.3 K/uL (0.7-4.9); Absolute Monocytes 0.4 K/uL (0.1-1.3); Absolute Neutrophil 4.7 K/uL (1.8-8.0); Basophils % 0.4 % (0-1.3); Eosinophils % 0.9 % (0-4.4); Hemoglobin 12.6 g/dL (12.0-15.0); Lymphocytes % 20.5 % (15.3-44.8); MCH 29.2 pg (27.0-35.0); MCHC 34.1 g/dL (32.0-36.0); MCV 85.8 fL (80-100); Monocytes % 5.5 % (3.3-12.3); Neutrophils % 72.7 % (41.7-73.7); Platelets 215 thou/uL (152-406); RBC Red Blood Cell Count 4.31 M/uL (3.86-4.86)
[2024-04-03 10:37] LABS: PT Prothrombin Time 11.2 SECONDS (9.4-12.5); PTT, Activated Partial Thromb 31.1 SECONDS (24.3-36.9); Protime INR 1.07
[2024-04-03 10:38] LABS: Anion Gap 8.3 mEq/L (5.0-15.0); Potassium 4.3 mEq/L (3.5-5.1)
[2024-04-04] MEDS ORDERED: VERAPAMIL HCL 10 MG/4 ML VIAL IV ONE (14:07)
[2024-04-04] MEDS ORDERED: MIDAZOLAM HCL 2 MG/2 ML INJ ONE (14:07)
[2024-04-04] MEDS ORDERED: HEPA 1000U/500MLS 2,000 UNIT/1,000 ML BAG IV ONE (14:07)
[2024-04-04] MEDS ORDERED: HEPARIN 10,000 UNIT/10 ML VIAL IV ONE (14:07)
[2024-04-04] MEDS ORDERED: LIDOCAINE 1% 20 ML MDV ONE (14:07)
[2024-04-04] MEDS ORDERED: ATROPINE SULF 1 MG/10 ML SYR IV ONE (14:07)
[2024-04-04] MEDS ORDERED: CLOPIDOGREL 75 MG TABLET ONE (14:08)
[2024-04-04] MEDS ORDERED: ASPIRIN 325 MG TAB ONE (14:08)
[2024-04-04] MEDS ORDERED: HEPARIN 5000 UNIT/ML 1 ML VIAL ONE (14:08)
[2024-04-04] MEDS ORDERED: FENTANYL CITR 100 MCG/2 ML ONE (14:08)
[2024-04-04] MEDS ORDERED: TICAGRELOR 90 MG TABLET PO ONE (14:08)
[2024-04-04] MEDS: NA CHLORIDE 0.9% 500 ML ONE (15:27)
[2024-04-04 18:49] VITALS: O2SAT 97
[2024-04-04 19:33] VITALS: BP 119/65; TEMP 97.8
--- NOTE | 2024-04-04 20:30 | OP ---
Date of Procedure: 04/04/2024 Surgeon: MARI HERNANDEZ Procedures Performed: 1. Selective coronary angiogram. 2. Left heart catheterization. 3. PCI of critical mid LAD stenosis, I used 2.75 x 20 mm Synergy drug-eluting stent overlapped distal ly by using 2.5 x 12 mm Synergy drug-eluting stent. Indication: Unstable angina with the severe drop in ejection fraction. Access: Right radial artery 6-Maltese closed with TR band. Complications: None. Bleeding: Less than 50 mL. Anesthesia: Total sedation time was 1 hour, used fentanyl and Versed. Description Of Procedure: After risks, benefits, and alternatives were explained, patient agreed to procedure and signed informed consent. The patient was brought into cardiac catheterization laborato , prepped and draped in the usual sterile fashion. Then, I accessed right radial artery using pedi atric micropuncture kit, placed 6-Maltese slender sheath and took 5-Maltese [place] 4.0 catheter into aor tic root, crossed the aortic valve, measured the LVEDP. Pullback did not record any gradient, then e ngaged the left main, took standard views, and then on the RCA, took standard views and then gave 180 mg of Brilinta, 325 mg of aspirin, and gave systemic heparin to assure ACT level above 250 throughou t the procedure and took an EBU 3.5 guide into the aortic root over a J-wire, engaged the left main, took Runthrough wire into the LAD, placed it distally, and then using a 2.5 balloon, lesions were exp anded very well in the mid LAD and then I placed a 2.75 x 20 mm Synergy drug-eluting stent in the mid LAD. Excellent expansion. However, there was a distal edge dissection. So I placed another 2.5 x 12 mm stent to overlap with the first one. Excellent angiographic results at the end. COURTNEY-3 flow. Initially, before the procedure, it was COURTNEY-1 flow and after the PCI, did improve to COURTNEY-3 flow. Wire was removed. Final angiogram was satisfactory and then I removed the guide and the sheath, marisela wil TR band with good hemostasis. Findings: 1. Left main is normal. 2. LAD; proximal segment is normal. After diagonal 1 takeoff, the LAD is 99% blocked with the COURTNEY-1 flow, status post successful PCI and resulting in COURTNEY-3 flow at the end. Diagonal branch has lumin al irregularities. 3. Left circumflex; large vessel. At the OM1 branch, it is high takeoff and has ostial 90% stenosis. The proximal left circumflex is normal. 4. RCA; large and dominant with diffuse 30% proximal to mid and the PDA has proximal 30% stenosis. 5. LVEDP is elevated at 19 mmHg. Conclusion: 1. Severe or critical mid LAD stenosis, status post successful PCI. 2. 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 Otherwise, mild coronary artery disease. Plan: Aspirin, Brilinta, and high-dose statin. Follow up in the office in 1 week. SR/MODL Voice ID: [id number] Report ID: [id number]
== END 2024-04-04 19:29 | disposition home or self-care (01) ==
LOC: CCL 12:26
PROVIDERS: ATTEND Internal Medicine
DX: I25.110 Atherosclerotic heart disease of native coronary artery with unstable angina pectoris (principal); I73.9 Peripheral vascular disease, unspecified; I11.0 Hypertensive heart disease with heart failure; I50.9 Heart failure, unspecified; Z88.2 Allergy status to sulfonamides; Z88.7 Allergy status to serum and vaccine; Z82.49 Family history of ischemic heart disease and other diseases of the circulatory system
CPT/HCPCS: 85025; 80048; 36415; 85610; 85347; 85730; 93458; 76937; C1893; Q9967; C1725; C9600; J1644; J2003; J2250; J3010; J7040; 99152; 99153; J0461

== ENCOUNTER 2024-04-16 11:13 | Day surgery (SDC) | payer OTHER, MEDICARE ==
[2024-04-16] MEDS ORDERED: NA CHLORIDE 0.9% 500 ML ONE (11:14)
[2024-04-16] MEDS ORDERED: HEPA 1000U/500MLS 2,000 UNIT/1,000 ML BAG IV ONE (11:17)
[2024-04-16] MEDS ORDERED: HEPARIN 10,000 UNIT/10 ML VIAL IV ONE (11:17)
[2024-04-16] MEDS ORDERED: LIDOCAINE 1% 20 ML MDV ONE (11:18)
[2024-04-16] MEDS ORDERED: ATROPINE SULF 1 MG/10 ML SYR IV ONE (11:18)
[2024-04-16] MEDS ORDERED: MIDAZOLAM HCL 2 MG/2 ML INJ ONE (11:18)
[2024-04-16] MEDS ORDERED: VERAPAMIL HCL 10 MG/4 ML VIAL IV ONE (11:18)
[2024-04-16] MEDS ORDERED: HEPARIN 5000 UNIT/ML 1 ML VIAL ONE (11:18)
[2024-04-16] MEDS ORDERED: FENTANYL CITR 100 MCG/2 ML ONE (11:19)
[2024-04-16] MEDS ORDERED: TICAGRELOR 90 MG TABLET PO ONE ×2 (12:22→12:24)
[2024-04-16] MEDS ORDERED: ASPIRIN 325 MG TAB ONE (12:22)
--- NOTE | 2024-04-16 13:54 | OP ---
Date of Procedure: 04/16/2024 Surgeon: MARI HERNANDEZ Procedures Performed: 1. Coronary angiogram. 2. PCI of severe high OM stenosis, I used 3.0 x 12 mm Synergy drug-eluting stent. Indication: Unstable angina. Access: Right radial artery 6-Canadian closed with TR band. Complications: None. Bleeding: Less than 50 mL. Anesthesia: Total sedation time was 1 hour, used fentanyl and Versed. Description Of Procedure: After risks, benefits, and alternatives were explained, the patient agreed to procedure and signed informed consent. Patient was brought into cardiac catheterization laborato , prepped and draped in the usual sterile fashion. Then, I accessed right radial artery using pedi atric micropuncture kit and ultrasound guidance, and placed a 6-Canadian slender sheath and took a 6-Fr [employer] EBU3.5 guide into the aortic root over a J-wire, engaged left main, took standard views and gave systemic heparin to assure ACT level above 250 throughout the procedure and the patient was loaded w ith Brilinta and aspirin and then took Runthrough wire into the left circumflex and then to high OM, then performed balloon angioplasty. Lesion expanded very well and then placed 3.0 x [address] ug-eluting stent with excellent expansion and final angiogram was satisfactory. Wire was removed and final angiogram showed no complications. Then I removed the guide and the sheath and placed TR band with good hemostasis. Findings: 1. Left main; large and normal. 2. LAD; proximal segment is normal. Widely patent mid LAD stent. Rest of the LAD is normal. 3. Left circumflex; high OM ostial 99% stenosed, status post successful PCI. The rest of the left ci rcumflex is normal. 4. RCA; is not injected, was known to have mild disease. Conclusion: Severe high OM1 disease, status post successful PCI. Plan: Aspirin, Brilinta, high-dose statin. Follow up with me in the office in 1 week. SR/MODL Voice ID: [id number] Report ID: [id number]
[2024-04-16 16:02] VITALS: BP 123/97; O2SAT 97
== END 2024-04-16 16:00 | disposition home or self-care (01) ==
LOC: CCL 11:13
PROVIDERS: ATTEND Internal Medicine
DX: I25.110 Atherosclerotic heart disease of native coronary artery with unstable angina pectoris (principal); I73.9 Peripheral vascular disease, unspecified; I11.0 Hypertensive heart disease with heart failure; I50.9 Heart failure, unspecified; Z95.5 Presence of coronary angioplasty implant and graft; Z79.899 Other long term (current) drug therapy; Z88.2 Allergy status to sulfonamides; Z88.7 Allergy status to serum and vaccine; Z91.011 Allergy to milk products; Z88.8 Allergy status to other drugs, medicaments and biological substances; Z82.49 Family history of ischemic heart disease and other diseases of the circulatory system
CPT/HCPCS: 93454; 76937; C1893; Q9967; C1725; C9600; J1644; J2003; J7040; 85347; 99152; J0461; J2250; J3010